=== PATIENT | female | born 1975 | race Caucasian/White ===

== ENCOUNTER 2016-12-10 08:47 | Inpatient (IN) | payer OTHER ==
[~2016-12-10] VITALS: Ht 172.7 cm; Wt 76.0 kg
[~2016-12-10 08:47] MED LIST: BUPR200T2 PO; HYDR-3498 PO; PEG4000S8 PO; TAMS-14 PO; TRAZ100T15 PO
[2016-12-10 09:06] VITALS: TEMP 98.6
[2016-12-10] MEDS ORDERED: KETOROLAC 30 MG INJ IM STA (09:17)
--- NOTE | 2016-12-10 09:29 | ERD ---
ER Documentation Chief Complaint Date/Time DATE: 12/10/16 TIME: 09:15 Chief Complaint left buttocks pain from falling last night. no drainage. no active bleeding HPI 41-year-old female with a history of chronic pain, anxiety, depression, ureteral /renal calculi and anemia ambulatory to the ED complaining of severe, sharp and crampy, nonradiating left hip pain after a slip and fall yesterday. She had a previous abscess there in childhood and feels this might we recurred. Pain is exacerbated by weightbearing or movement. No knee or ankle pain. No relieving factors. No other injuries. No syncope or loss of consciousness. Denies chest pain or palpitations. No shortness of breath or cough. Denies abdominal pain, nausea or vomiting. No fevers or chills. ROS All systems reviewed and are negative except as per history of present illness. Medications Home Meds Reported Medications Trazodone Hcl* (Trazodone Hcl*) 100 Mg Tablet, 100 MG PO HS Y for INSOMNIA, TAB 01/18/15 Bupropion Hcl* (Wellbutrin SR*) 200 Mg Tablet.sa, 400 MG PO DAILY, TAB.SA 11/28/14 Discontinued Scripts Hydrocodone Bit-Acetaminophen* ([place]*) 5-325 Mg Tab, 1 TAB PO Q6 Y for PAIN, # 20 TAB Prov:EDISON HERNANDEZ DO 07/13/15 Peg/Electrolytes* (Golytely Solution*) 4,000 Ml Soln.recon, 4000 ML PO ONCE, #1 BOTTLE Prov:EDISON HERNANDEZ DO 07/13/15 Tamsulosin Hcl* (Flomax*) 0.4 Mg Cap.er.24h, 0.4 MG PO BID, #30 CAP Prov:ROD HIGGINBOTHAM MD 05/29/15 Allergies Allergies: Coded Allergies: prochlorperazine edisylate (Verified Allergy, Severe, TONGUE SWELLS, ) prochlorperazine maleate (Verified Allergy, Severe, TONGUE SWELLS, 07/12/15 ) PMhx/Soc Reviewed in chart. As per HPI. History of Surgery: Yes (GASTRIC BY PASS, TUMMY TUCK ) Anesthesia Reaction: No Hx Neurological Disorder: No Hx Respiratory Disorders: Yes (ASTHMA) Hx Cardiac Disorders: No Hx Psychiatric Problems: Yes (ANXIETY, DEPRESSION ) Hx Miscellaneous Medical Probl: Yes (KIDNEY STONE, ANEMIA) Hx Alcohol Use: No Hx Substance Use: No Hx Tobacco Use: Yes Smoking Status: Current every day smoker FmHx Not relevant to presenting complaint. No stroke or cancer Physical Exam Vitals Vital Signs Date Time Temp Pulse Resp B/P Pulse Ox O2 Delivery O2 Flow Rate FiO2 12/10/16 09:06 98.6 79 20 165/99 98 Room Air 12/10/16 08:53 98.5 85 20 165/99 98 Physical Exam Const: Alert, anxious, crying Head: Atraumatic Eyes: Normal Conjunctiva ENT: Normal External Ears, Nose and Mouth. Neck: Full range of motion. Nontender.. Resp: Breath sounds are equal and clear to auscultation bilaterally Cardio: Regular rate and rhythm, no murmurs Abd: Soft, non tender, non distended. Normal bowel sounds Skin: No petechiae or rashes Back: No midline or flank tenderness Ext: Left lateral upper thigh/buttock: Tenderness but no erythema, induration , fluctuance or deformity. No subcutaneous crepitus. Neur: Awake and alert. No focal deficit observed. Psych: Anxious, denies depression or suicidal ideations. Result Diagram: 12/10/16 1110 12/10/16 1110 Results 24 hrs Laboratory Tests Test 12/10/16 11:10 Anion Gap 15 Basophils # 0.010^3/ul Basophils % 0.0% Blood Morphology Comment Blood Urea Nitrogen 14mg/dl Calcium Level 8.5mg/dl Carbon Dioxide Level 20mmol/L Chloride Level 107mmol/L Creatinine 0.50mg/dl Eosinophils # 0.010^3/ul Eosinophils % 0.0% Glucose Level 93mg/dl Hematocrit 30.4% Hemoglobin 9.7g/dl Lymphocytes # 0.710^3/ul Lymphocytes % 4.0% Mean Corpuscular Hemoglobin 23.3pg Mean Corpuscular Hemoglobin Concent 32.1g/dl Mean Corpuscular Volume 72.7fl Mean Platelet Volume 8.9fl Monocytes # 0.910^3/ul Monocytes % 5.9% Neutrophils # 14.510^3/ul Neutrophils % 90.1% Nucleated Red Blood Cells # 0.010^3/ul Nucleated Red Blood Cells % 0.0/100WBC Platelet Count 89054^3/UL Potassium Level 3.6mmol/L Red Blood Count 4.1810^6/ul Red Cell Distribution Width 18.2% Sodium Level 138mmol/L White Blood Count 16.110^3/ul Current Medications Medications (Trade) Dose Ordered Sig/Benita Route PRN Reason Start Time Stop Time Status Last Admin Dose Admin Ketorolac Tromethamine (Toradol) 30 mg ONCE STAT IM 12/10/16 09:17 12/10/16 09:18 12/10/16 09:31 Acetaminophen/ Hydrocodone Bitart ([place] ()) 1 tab ONCE ONCE PO 12/10/16 09:30 12/10/16 09:31 12/10/16 09:30 Lorazepam 2 mg 2 mg ONCE ONCE IM 12/10/16 10:30 12/10/16 10:31 12/10/16 10:14 Sodium Chloride (NS) 1,000 ml @ 1,000 mls/hr Q1H STAT IV 12/10/16 10:42 12/10/16 11:41 12/10/16 11:09 Hydromorphone HCl 1 mg 1 mg ONCE STAT IV 12/10/16 10:43 12/10/16 10:44 12/10/16 11:10 Piperacillin Sod/ Tazobactam Sod 100 ml @ 200 mls/hr ONCE STAT IVPB 12/10/16 10:57 12/10/16 11:26 12/10/16 11:13 Vancomycin HCl (Vancocin) 250 ml @ 125 mls/hr ONCE STAT IVPB 12/10/16 10:57 12/10/16 12:56 12/10/16 12:07 Ondansetron HCl (Zofran Inj) 4 mg BRIDGE ORDER PRN IV NAUSEA AND/OR VOMITING 12/10/16 13:00 12/11/16 12:59 Acetaminophen 650 mg 650 mg ER BRIDGE PRN PO MILD PAIN/FEVER 12/10/16 13:00 12/11/16 12:59 Piperacillin Sod/ Tazobactam Sod 100 ml @ 25 mls/hr TID@02,10,18 IVPB 12/10/16 18:00 UNV Levofloxacin/ Dextrose (Levaquin 500mg/ D5W 100 ml (Pmx)) 100 ml @ 100 mls/hr Q24H IVPB 12/10/16 13:00 UNV Bupropion HCl (Wellbutrin Sr) 400 mg DAILY PO 12/11/16 09:00 UNV Trazodone HCl (Desyrel) 50 mg HS PRN PO INSOMNIA 12/10/16 13:00 UNV Ketorolac Tromethamine 15 mg 15 mg Q8H PRN IV PAIN 12/10/16 13:00 12/14/16 12:00 UNV Potassium Chloride/Sodium Chloride (1/2 NS + KCl 20 Meq) 1,000 ml @ 80 mls/hr [id number] IV 12/10/16 12:48 IV Flush (NS 3 ml) 3 ml PER PROTOCOL IV 12/10/16 13:00 UNV Ondansetron HCl (Zofran Inj) 4 mg Q6H PRN IV NAUSEA AND/OR VOMITING 12/10/16 13:00 UNV Acetaminophen (Tylenol Tab) 650 mg Q6H PRN PO PAIN LEVEL 1-3 OR FEVER 12/10/16 13:00 UNV Oxycodone/ Acetaminophen (Percocet (5/ 325)) 1 tab Q6H PRN PO MODERATE PAIN LEVEL 4-6 12/10/16 13:00 UNV Morphine Sulfate (morphine) 2 mg Q4H PRN IV SEVERE PAIN LEVEL 7-10 12/10/16 13:00 UNV Docusate Sodium (Colace) 100 mg Q12H PRN PO CONSTIPATION 12/10/16 13:00 UNV Bisacodyl (Dulcolax) 5 mg DAILY PRN PO CONSTIPATION 12/10/16 13:00 UNV Pantoprazole (Protonix Tab) 40 mg DAILY@06 PO 12/11/16 06:00 UNV Nicotine (Nicoderm 14 Mg/ 24hr) 1 patch DAILY TRANSDERM 12/11/16 09:00 UNV Lorazepam (Ativan) 0.5 mg Q8H PRN PO ANXIETY 12/10/16 13:00 UNV PROCEDURE: This CT Left Hip CLINICAL INDICATION: The left hip pain post fall TECHNIQUE: Transaxial images were obtained on a multi-slice CT scanner without intravenous contrast. Sagittal and coronal re-formations were subsequently made. One or more of the following dose reduction techniques were used: - Automated exposure control. - Adjustment of the mA and/or kV according to patient size. - Use of iterative reconstruction technique. Radiation: The CTDIvol is 82.37 mGy and the DLP is 581.06 mGycm. COMPARISON: CT scan of the abdomen and pelvis done 05/29/2015. The pelvis and hips were unremarkable on the previous CT. FINDINGS: Osseous structures: The osseous elements appear intact with no fracture or destructive process identified. Joint spaces: The left hip joint appears unremarkable and no joint effusion is evident. The left sacroiliac joint also appears unremarkable. Soft tissues: There is increased stranding within the deep subcutaneous fat at the left superior posterior thigh and buttock with some bubbles of subcutaneous and intramuscular air evident. The bladder appears unremarkable as is the visualized bowel and there is no free intraperitoneal fluid or adenopathy evident. IMPRESSION: 1. No fracture or osseous destructive process is evident. This is unchanged from the previous CT of the abdomen and pelvis done 05/29/2015. 2. The joint spaces are well maintained with no joint effusion. 3. Interval development of increased soft tissue density seen within the deep subcutaneous fat of the left superior posterior-lateral thigh and buttock region with a few bubbles of the subcutaneous and intramuscular air. If there has not been a penetrating injury, the possibility of infection should be considered. Physician Shayla Date Time Electronically viewed and signed by Physician Shayla on 12/10/2016 10:25 RH/ Procedures/MDM DOCUMENTS REVIEWED: ED nurse, prior ED, prior records MEDICAL DECISION MAKIN-year-old female with a history of chronic pain, anxiety, depression, ureteral/renal calculi and anemia ambulatory to the ED complaining of severe, sharp and crampy, nonradiating left hip pain after a slip and fall yesterday. CT reveals developing buttock/thigh abscess. Antibiotics given after cultures. No criteria for SIRS or sepsis. Patient required multiple doses of opiate analgesics and anxiolytics. Surgery was consulted. Patient be admitted to [facility] for IV antibiotics, further evaluation and management. Counseled patient regarding diagnosis, diagnostic results and plan for admission. CALLS/CONSULTS: Time 12:25, Dr. Piedad Nixon, will consult. CALLS/CONSULTS: Time 12:25, Dr. Martin, Recommends admission to [facility]. PATIENT CARE TRANSITIONED: Time: 12:30, Dr. Martin. Departure Diagnosis: Primary Impression: Left buttock abscess Additional Impression: Anxiety Condition: Serious BILL HERNANDEZ MD Dec 10, 2016 09:29
[2016-12-10] MEDS ORDERED: HYDROCODONE/APAP (10/325) TAB PO ONE (09:30)
--- NOTE | 2016-12-10 10:26 | RADRPT ---
PROCEDURE: This CT Left Hip CLINICAL INDICATION: The left hip pain post fall TECHNIQUE: Transaxial images were obtained on a multi-slice CT scanner without intravenous contras t. Sagittal and coronal re-formations were subsequently made. One or more of the following dose reduction techniques were used: - Automated exposure control. - Adjustment of the mA and/or kV according to patient size. - Use of iterative reconstruction technique. Radiation: The CTDIvol is 82.37 mGy and the DLP is 581.06 mGycm. COMPARISON: CT scan of the abdomen and pelvis done 05/29/2015. The pelvis and hips were unremarkable on the previous CT. FINDINGS: Osseous structures: The osseous elements appear intact with no fracture or destructive process ident ified. Joint spaces: The left hip joint appears unremarkable and no joint effusion is evident. The left sa croiliac joint also appears unremarkable. Soft tissues: There is increased stranding within the deep subcutaneous fat at the left superior pos terior thigh and buttock with some bubbles of subcutaneous and intramuscular air evident. The bladde r appears unremarkable as is the visualized bowel and there is no free intraperitoneal fluid or rupert opathy evident. IMPRESSION: 1. No fracture or osseous destructive process is evident. This is unchanged from the previous CT of the abdomen and pelvis done 05/29/2015. 2. The joint spaces are well maintained with no joint effusion. 3. Interval development of increased soft tissue density seen within the deep subcutaneous fat of t he left superior posterior-lateral thigh and buttock region with a few bubbles of the subcutaneous a nd intramuscular air. If there has not been a penetrating injury, the possibility of infection shou ld be considered. Physician Shayla Date Time Electronically viewed and signed by Physician Shayla on 12/10/2016 10:25 /
[2016-12-10] MEDS ORDERED: LORAZEPAM 2 MG INJ IM ONE (10:30)
[2016-12-10] MEDS ORDERED: SOD CHLORIDE 0.9% 1,000 ML IV STA (10:42)
[2016-12-10] MEDS ORDERED: HYDROmorphONE 1 MG/ML SYG IV STA ×2 (10:43→13:05)
[2016-12-10] MEDS ORDERED: VANCOMYCIN 1 GM (PMX) 250 ML IVPB STA (10:57)
[2016-12-10] MEDS ORDERED: PIPER-TAZO 3.375 GM IV (PMX) 100 ML IVPB STA (10:57)
[2016-12-10 11:39] LABS: HEMATOCRIT 30.4 % (37.0-47.0); HEMOGLOBIN 9.7 g/dl (12.0-16.0); LYMPHOCYTES # 0.7 10^3/ul (0.8-2.9); MEAN CORPUSCULAR HEMOGLOBIN 23.3 pg (29.0-33.0); MEAN CORPUSCULAR HGB CONC 32.1 g/dl (32.0-37.0); MEAN CORPUSCULAR VOLUME 72.7 fl (82.0-101.0); MEAN PLATELET VOLUME 8.9 fl (7.4-10.4); MONOCYTE # 0.9 10^3/ul (0.3-0.9); MONOCYTES % 5.9 % (0.0-11.0); NEUTROPHIL # 14.5 10^3/ul (1.6-7.5); NEUTROPHILS % 90.1 % (39.0-77.0); PLATELET COUNT 247 10^3/UL (140-440); RED BLOOD COUNT 4.18 10^6/ul (4.20-5.40); RED CELL DISTRIBUTION WIDTH 18.2 % (11.5-14.5); UNCORRECTED WBC 16.1 10^3/ul (4.8-10.8); WHITE BLOOD COUNT 16.1 10^3/ul (4.8-10.8)
[2016-12-10 11:43] LABS: POTASSIUM 3.6 mmol/L (3.5-5.1)
[2016-12-10 11:45] LABS: CREATININE 0.5 mg/dl (0.44-1.00)
[2016-12-10 11:47] LABS: CONDITION 1; LH ANALYZER COMMENTS 1
[2016-12-10 11:51] LABS: CALCIUM 8.5 mg/dl (8.4-10.2)
[2016-12-10] MEDS ORDERED: DOCUSATE SODIUM 100 MG CAP PO PRN (13:00)
[2016-12-10] MEDS ORDERED: ONDANSETRON 4 MG INJ IV PRN ×2 (13:00)
[2016-12-10] MEDS ORDERED: BISACODYL (EC) 5 MG TAB PO PRN (13:00)
[2016-12-10] MEDS ORDERED: NACL 0.9% 3 ML SYG IV SCH (13:00)
[2016-12-10] MEDS ORDERED: LORAZEPAM 0.5 MG TAB PO PRN (13:00)
[2016-12-10] MEDS ORDERED: ACETAMINOPHEN 325 MG TAB PO PRN ×2 (13:00)
[2016-12-10 13:35] VITALS: BP 132/89; RESP 18
[2016-12-10] MEDS: morphine 2 MG INJ IV PRN ×2 (14:31→23:45)
[2016-12-10] MEDS: KETOROLAC 15 MG INJ IV PRN (15:54)
[2016-12-10] MEDS: 1/2 NS + KCL 20 MEQ 1,000 ML IV SCH (15:58)
[2016-12-10] MEDS: LEVOFLOXACIN 500MG/D5W (PMX) 100 ML IVPB SCH (15:58)
[2016-12-10 16:07] VITALS: Ht 172.7 cm; Wt 76.0 kg
[2016-12-10] MEDS ORDERED: morphine 2 MG INJ IV ONE (16:30)
[2016-12-10] MEDS: PIPER-TAZO 3.375 GM IV (PMX) 100 ML IVPB SCH (18:10)
[2016-12-10] MEDS ORDERED: LORAZEPAM 2 MG INJ IV ONE (18:30)
[2016-12-10] MEDS: OXYCODONE/ACETAMINOPHEN (5/325) TAB PO PRN (20:06)
[2016-12-10] MEDS: HYDROmorphONE 1 MG/ML SYG IV PRN (20:42)
[2016-12-10] MEDS: LORAZEPAM 2 MG INJ IV PRN (22:33)
[2016-12-11] MEDS: traZODone 50 MG TAB PO PRN ×2 (00:47→21:10)
[2016-12-11] MEDS: HYDROmorphONE 1 MG/ML SYG IV PRN ×3 (00:50→10:03)
[2016-12-11] MEDS: 1/2 NS + KCL 20 MEQ 1,000 ML IV SCH ×3 (01:18→18:41)
[2016-12-11] MEDS: PIPER-TAZO 3.375 GM IV (PMX) 100 ML IVPB SCH ×3 (01:25→18:41)
[2016-12-11] MEDS: OXYCODONE/ACETAMINOPHEN (5/325) TAB PO PRN ×4 (03:23→21:10)
[2016-12-11] MEDS: LORAZEPAM 2 MG INJ IV PRN ×5 (03:23→23:08)
[2016-12-11] MEDS: PANTOPRAZOLE (EC) 40 MG TAB PO SCH (05:27)
[2016-12-11 05:41] LABS: ALBUMIN 3.1 g/dl (3.3-4.9)
[2016-12-11 05:42] LABS: BASOPHILS % 0.1 % (0.0-2.0); EOSINOPHILS % 0.2 % (0.0-7.0); HEMATOCRIT 27.5 % (37.0-47.0); HEMOGLOBIN 8.9 g/dl (12.0-16.0); LYMPHOCYTES # 1.5 10^3/ul (0.8-2.9); LYMPHOCYTES % 10.4 % (15.0-51.0); MEAN CORPUSCULAR HEMOGLOBIN 23.5 pg (29.0-33.0); MEAN CORPUSCULAR HGB CONC 32.2 g/dl (32.0-37.0); MEAN CORPUSCULAR VOLUME 73.1 fl (82.0-101.0); MEAN PLATELET VOLUME 9.4 fl (7.4-10.4); MONOCYTE # 0.5 10^3/ul (0.3-0.9); MONOCYTES % 3.5 % (0.0-11.0); NEUTROPHIL # 12.3 10^3/ul (1.6-7.5); NEUTROPHILS % 85.8 % (39.0-77.0); PLATELET COUNT 216 10^3/UL (140-440); POTASSIUM 3.6 mmol/L (3.5-5.1); RED BLOOD COUNT 3.76 10^6/ul (4.20-5.40); RED CELL DISTRIBUTION WIDTH 18.1 % (11.5-14.5); UNCORRECTED WBC 14.4 10^3/ul (4.8-10.8); WHITE BLOOD COUNT 14.4 10^3/ul (4.8-10.8)
[2016-12-11 05:44] LABS: ALBUMIN/GLOBULIN RATIO 1.14; BILIRUBIN,INDIRECT 0.2 mg/dl (0-1.1); BILIRUBIN,TOTAL 0.2 mg/dl (0.2-1.3); CREATININE 0.49 mg/dl (0.44-1.00); TOTAL PROTEIN 5.8 g/dl (6.1-8.1)
[2016-12-11 05:45] LABS: CALCIUM 8.2 mg/dl (8.4-10.2); MAGNESIUM 1.7 mg/dl (1.7-2.5)
[2016-12-11 06:07] LABS: THYROID STIMULATING HORMONE 3.4 MIU/L (0.465-4.680)
[2016-12-11 06:13] LABS: CONDITION 1; LH ANALYZER COMMENTS 1
--- NOTE | 2016-12-11 06:24 | HP ---
DATE OF ADMISSION: 12/10/2016 CHIEF COMPLAINT: Left lower extremity pain. HISTORY OF PRESENT ILLNESS: This is a pleasant 41-year-old female with past medical history of inso mnia, depression, right lower extremity trauma at a young age, status post surgical intervention, wh ich she has not had any difficulty with ambulation status post the surgery, who had a fall about 2 d ays ago on her left hip and has been having complaint of having pain and the pain has been worsening significantly Therefore, she presented to [facility] emergency room where her WBC was foun d to be elevated at 16.1. CT of the lower extremity was obtained which showed no fracture, osseous destruction processes evident, although in the soft tissue there is increased stranding within the d eep subcutaneous fat at the left superior posterior thigh and buttocks with some bubbles of subcutan eous and intramuscular evident. The bladder appears unremarkable visualized bowel. There is no free intraperitoneal fluid or adenopathy otherwise evident. The hip joint appears unremarkable, no joint effusion is evident. The left sacroiliac joint also appears unremarkable. The patient was treated with Zofran, Tylenol, Zosyn, vancomycin, Dilaudid, normal saline, Ativan, [place] and Toradol in the course of the emergency room, and at this time, the patient continues to complain of having severe pain, 10/10, in her left hip area. PAST MEDICAL AND SURGICAL HISTORY: As above per HPI. MEDICATIONS 1. Wellbutrin. 2. Trazodone. ALLERGIES: PROCHLORPERAZINE. SOCIAL HISTORY: She smokes about half a pack to pack of cigarettes per day. No alcohol, no illicit drugs. FAMILY HISTORY: Noncontributory. REVIEW OF SYSTEMS: She denies any fever, chills, weight gain, weight loss, anorexia. No chest pain , palpitations, edema, orthopnea. No change in visual acuity, diplopia, photophobia. No nausea, vo miting, diarrhea, no abdominal pain, no neck pain. No restricted range of motion in upper extremiti es. Restricted range of motion in left lower extremity secondary to pain in her hip. No restricted range of motion in right upper and right lower extremity. She denies having dysuria, hematuria, ur gency, incontinence. Other 12 review of systems has been found to be negative. PHYSICAL EXAMINATION: VITAL SIGNS: Temperature 98.6, pulse 79, respiration 20, blood pressure 165/99, oxygen 98% in room air. GENERAL APPEARANCE: The patient is lying in bed comfortably with moderate discomfort and she looks anxious. EYES AND ENT: Conjunctivae and lids are normal. Pupils are normal. Extraocular normal. Hearing g rossly normal. Lips are normal. Oral mucosa mildly dry. NECK: Supple. Trachea is midline. No lymphadenopathy. RESPIRATORY: Effort is normal. Clear to auscultate bilaterally. CARDIOVASCULAR: Normal S1, S2 rhythm, rate. No murmur, no bruits, no edema. Peripheral puls es, radial pulses palpable. Cap refill is normal. CHEST: Normal expansion of thorax during inspiration. GASTROINTESTINAL: Abdomen is soft, nontender, not distended. Bowel sounds present. No guarding, n o rebound. GENITOURINARY: Deferred. MUSCULOSKELETAL: Upper extremities within normal limits. Right lower extremity: There is a well-h ealed scar in the buttocks area, nontender. The left hip at the lateral aspect there is tenderness to touch and no sign of erythema. NEUROLOGIC: Cranial nerves II through XII are grossly intact. PSYCHIATRIC: Normal judgment and insight. Alert and oriented x3. Mood and affect is normal. LABORATORY WORK AND IMAGING: WBC 16.1, hemoglobin 9.7, hematocrit 34.4, MCV 72.7, platelets 247. S odium 138, potassium 3.6, chloride 107, bicarbonate 20, BUN 14, creatinine 0.50, glucose 93, calcium 8.5. ASSESSMENT AND PLAN: 1. Left lower extremity pain with evidence of deep subcutaneous fat at the superior posterior thigh and buttocks with some bubbles and subcutaneous intramuscular air. General surgery has been consul guero. Patient has been started on Zosyn and vancomycin. At this time we will place the patient on Z osyn and Levaquin. Follow general surgery recommendation. 2. Leukocytosis, likely secondary to #1, as above continue broad-spectrum IV antibiotics. 3. Microcytic anemia. Follow up iron panel and treat accordingly. 4. History of nicotine dependency. Place the patient on nicotine patch. Education was provided. The patient has been instructed to quit smoking. 5. History of insomnia. Continue trazodone. 6. History of major depression. Continue Wellbutrin. 7. For deep venous thrombosis prophylaxis, on sequential compression devices. 8. For gastrointestinal prophylaxis, on proton pump inhibitor. 9. We will continue to monitor patient closely. Further recommendations, management and treatment as per clinical course. Total amount of time I spent for evaluation of patient and admission workup 40 minutes. Dictated By: SIVA JUSTICE MD PN/NTS Conf#: [id number] DID#: [id number]
[2016-12-11] MEDS: morphine 2 MG INJ IV PRN ×3 (06:47→23:57)
[2016-12-11 07:43] VITALS: BP 141/72; RESP 19
[2016-12-11] MEDS: BUPROPION (SR) 100 MG TAB PO SCH ×2 (08:20→20:26)
[2016-12-11] MEDS: KETOROLAC 15 MG INJ IV PRN ×2 (08:20→20:21)
[2016-12-11] MEDS: NICOTINE (14 MG/24 HR) PATCH TRANSDERM SCH (08:24)
[2016-12-11 08:49] LABS: TOTAL IRON BINDING CAPACITY 283 ug/dl (241-421)
[2016-12-11 09:01] LABS: IRON < 10 ug/dl (35-150)
--- NOTE | 2016-12-11 10:37 | CONS ---
DATE OF ADMISSION: 12/10/2016 DATE OF CONSULTATION: 12/10/2016 TYPE OF CONSULTATION: Surgical. REFERRING PHYSICIAN: Dr. Benito Waterman. CHIEF COMPLAINT: 1. Left buttocks/leg pain and swelling. 2. Left buttock/leg abscess. 3. Leukocytosis. HISTORY OF PRESENT ILLNESS: Ms. Poornima Rogers is a 41-year-old female with multiple comorbidities who had a fall about 2 days ago on her left hip, and since then, has been complaining of pain that is w orsening. Upon her presentation, she was found to have stable vitals but leukocytosis at 16,000. C T scan of the area identified no fractures, however, there were fluid and air bubbles and stranding within the deep subcutaneous fat of the left posterosuperior thigh and buttocks. She was admitted a nd placed on IV antibiotics, and surgical consult was obtained for further evaluation and treatment. She denies any nausea or vomiting, no chest pain or shortness of breath. No visual or neurologic changes. No abdominal pain. No dysuria or vaginal discharge. No blood per mouth or rectum. No co ugh. No seizure. No rashes. No ____. PAST MEDICAL HISTORY: 1. History of obesity status post surgery. 2. Recent history of fall. 3. Left lower extremity buttock abscess. 4. Insomnia. 5. Nicotine dependence. 6. Macrocytic anemia. 7. Leukocytosis. 8. Depression. 9. Migraines. 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 11. Asthma. 12. Kidney stones. 13. Pyelonephritis history. 14. Urinary tract infection. 15. Thyroid cancer history. 16. Reaction to blood transfusion with swelling of the face. PAST SURGICAL HISTORY: 1. Gastric bypass. 2. Tummy tuck. 3. Renal stents. MEDICATIONS: As per MAR. ALLERGIES: MULTIPLE. SOCIAL HISTORY: Smoker, about half a pack to a pack per day. No recreational drugs or alcohol. FAMILY HISTORY: Noncontributory. REVIEW OF SYSTEMS: As per HPI. A 12-point review of system otherwise negative. PHYSICAL EXAMINATION: VITAL SIGNS: Temperature 98.6, pulse 70s to 80s, blood pressure 126/76. GENERAL: No acute distress. HEENT: Pupils equal, reactive. No scleral icterus. Mucous membranes are moist. No lesions. NECK: Supple, no JVD. No crepitus. Trachea midline. PULMONARY: Normal respiratory effort. CARDIAC: S1, S2 present. ABDOMEN: Soft, nontender, no rebound, no guarding. EXTREMITIES: No edema. Left posterior thigh/lower buttock with some induration and tenderness. NEUROLOGICAL: Alert, oriented, moves all 4 extremities grossly. PSYCHIATRIC: Alert, oriented and normal affect. LABORATORY AND RADIOGRAPHIC: As per chart. ASSESSMENT AND PLAN: Ms. Poornima Rogers is a 41-year-old female with multiple comorbidities. 1. Left posterior thigh/lower buttock fluid collection. Continue antibiotics. We will consider in cision and drainage. 2. Microcytic anemia of unknown etiology. The patient will need eventual workup. 3. Nicotine dependence. The patient is highly encouraged to stop smoking, especially in the settin g of infection and possible abscess. 4. Leukocytosis secondary to #1, as above. 5. History of insomnia and depression. Continue medical and psychiatric management. Thank you very much for consulting me in this patient's care. Dictated By: SHIRLEY FULLER/JANET Conf#: [id number] DID#: [id number]
[2016-12-11] MEDS ORDERED: LIDOCAINE 1%/EPI (MDV) 20 ML INJ INJ STA (10:38)
--- NOTE | 2016-12-11 11:13 | PN ---
Date/Time of Note Date/Time of Note DATE: 12/11/16 TIME: 11:11 Assessment/Plan VTE Prophylaxis VTE Prophylaxis Intervention: SCD's Lines/Catheters Urinary Cath still in place: No Assessment/Plan Chief Complaint/Hosp Course ASSESSMENT AND PLAN: 1. Left lower extremity pain with evidence of deep subcutaneous fat at the superior posterior thigh and buttocks with some bubbles and subcutaneous intramuscular air. General surgery has been consulted. Continue Zosyn and Levaquin. Follow general surgery recommendation. 2. Leukocytosis, likely secondary to #1, as above continue broad-spectrum IV antibiotics. 3. microcytic anemia. Start patient on iron supplementation 4. History of nicotine dependency. Continue nicotine patch. Education was provided. The patient has been instructed to quit smoking. 5. History of insomnia. Continue trazodone. 6. History of major depression. Continue Wellbutrin. 7. For deep venous thrombosis prophylaxis, on sequential compression devices. 8. For gastrointestinal prophylaxis, on proton pump inhibitor. We will continue to monitor patient closely. Further recommendations, management and treatment as per clinical course. Problems: Subjective 24 Hr Interval Summary Free Text/Dictation Patient continues to complain of having left hip pain No nausea vomiting diarrhea Very anxious Exam/Review of Systems Vital Signs Vitals Vital Signs Date Time Temp Pulse Resp B/P Pulse Ox O2 Delivery O2 Flow Rate FiO2 12/11/16 07:43 98.5 115 19 141/72 100 12/10/16 09:06 Room Air Intake and Output 12/10/16 12/10/16 12/11/16 15:00 23:00 07:00 Intake Total 760 ml 1590 ml Output Total 650 ml 1100 ml Balance 110 ml 490 ml Exam General: The patient is well-developed, in moderate distress secondary to pain HEENT: Atraumatic, normocephalic. The pupils are equal and round . Neck: Supple with full range of motion. Chest: Normal expansion of the thorax during inspiration Lungs: Clear to auscultation bilaterally Heart: Normal S1-S2, Regular rhythm and rate. Abdomen: Soft , nontender, nondistended , bowel sounds are present. Extremities: Induration and erythema in the left hip area, no edema no cyanosis Neurologic: Normal mental status,The patient is awake, alert and oriented . Results Result Diagram: 12/11/16 0421 12/11/16420 Results 24 hrs Laboratory Tests Test 12/11/16 04:21 Alanine Aminotransferase (ALT/SGPT) 35 Albumin 3.1 L Albumin/Globulin Ratio 1.14 Alkaline Phosphatase 73 Anion Gap 14 Aspartate Amino Transf (AST/SGOT) 21 Basophils # 0.0 Basophils % 0.1 Blood Morphology Comment Blood Urea Nitrogen 12 Calcium Level 8.2 L Carbon Dioxide Level 21 Chloride Level 104 Cholesterol Level 147 Cholesterol/HDL Ratio 3.0 Creatinine 0.49 Direct Bilirubin 0.00 Eosinophils # 0.0 Eosinophils % 0.2 Globulin 2.70 Glucose Level 94 HDL Cholesterol 49 Hematocrit 27.5 L Hemoglobin 8.9 L Hemoglobin A1c 6.1 H Indirect Bilirubin 0.2 Iron Level < 10 L LDL Cholesterol, Calculated 82 Lymphocytes # 1.5 Lymphocytes % 10.4 L Magnesium Level 1.7 Mean Corpuscular Hemoglobin 23.5 L Mean Corpuscular Hemoglobin Concent 32.2 Mean Corpuscular Volume 73.1 L Mean Platelet Volume 9.4 Monocytes # 0.5 Monocytes % 3.5 Neutrophils # 12.3 H Neutrophils % 85.8 H Nucleated Red Blood Cells # 0.0 Nucleated Red Blood Cells % 0.0 Percent Iron Saturation Platelet Count 216 Potassium Level 3.6 Red Blood Count 3.76 L Red Cell Distribution Width 18.1 H Sodium Level 135 Thyroid Stimulating Hormone (TSH) 3.400 Total Bilirubin 0.2 Total Iron Binding Capacity 283 Total Protein 5.8 L Triglycerides Level 78 White Blood Count 14.4 H Medications Medications Current Medications Acetaminophen/ Hydrocodone Bitart ([place] ()) 1 tab ONCE ONCE PO Last administered on 12/10/16 09:30; Admin Dose 1 TAB; Start 12/10/16 at 09:30; Stop 12/10/16 at 09:31 Lorazepam 2 mg 2 mg ONCE ONCE IM Last administered on 12/10/16 10:14; Admin Dose 2 MG; Start 12/10/16 at 10:30; Stop 12/10/16 at 10:31 Piperacillin Sod/ Tazobactam Sod 100 ml @ 25 mls/hr TID@02,10,18 IVPB Last administered on 12/11/16 09:22; Admin Dose 25 MLS/HR; Start 12/10/16 at 18:00 Levofloxacin/ Dextrose (Levaquin 500mg/ D5W 100 ml (Pmx)) 100 ml @ 100 mls/hr Q24H IVPB Last administered on 12/10/16 15:58; Admin Dose 100 MLS/HR; Start at 15:00 Bupropion HCl (Wellbutrin Sr) 200 mg BID PO Last administered on 12/11/16 08: 20; Admin Dose 200 MG; Start 12/11/16 at 09:00 Trazodone HCl (Desyrel) 50 mg HS PRN PO INSOMNIA Last administered on 00:47; Admin Dose 50 MG; Start 12/10/16 at 13:00 Ketorolac Tromethamine 15 mg 15 mg Q8H PRN IV PAIN Last administered on 08:20; Admin Dose 15 MG; Start 12/10/16 at 13:00; Stop 12/14/16 at 12:00 Potassium Chloride/Sodium Chloride (10/31 NS + KCl 20 Meq) 1,000 ml @ 80 mls/hr [id number] IV Last administered on 12/10/16 15:58; Admin Dose 80 MLS/HR; Start at 12:48 Ondansetron HCl (Zofran Inj) 4 mg Q6H PRN IV NAUSEA AND/OR VOMITING; Start 09/15 at 13:00 Acetaminophen (Tylenol Tab) 650 mg Q6H PRN PO PAIN LEVEL 1-3 OR FEVER; Start at 13:00 Morphine Sulfate (morphine) 2 mg Q4H PRN IV SEVERE PAIN LEVEL 7-10 Last administered on 12/11/16 06:47; Admin Dose 2 MG; Start 12/10/16 at 13:00 Docusate Sodium (Colace) 100 mg Q12H PRN PO CONSTIPATION; Start 12/10/16 at 13: 00 Bisacodyl (Dulcolax) 5 mg DAILY PRN PO CONSTIPATION; Start 12/10/16 at 13:00 Pantoprazole (Protonix Tab) 40 mg DAILY@06 PO Last administered on 12/11/16 05 :27; Admin Dose 40 MG; Start 12/11/16 at 06:00 Nicotine (Nicoderm 14 Mg/ 24hr) 1 patch DAILY TRANSDERM ; Start 12/11/16 at 09: 00 Morphine Sulfate (morphine) 2 mg ONCE ONCE IV Last administered on 12/10/16 16:37; Admin Dose 2 MG; Start 12/10/16 at 16:30; Stop 12/10/16 at 16:31 Lorazepam (Ativan) 0.5 mg ONCE ONCE IV Last administered on 12/10/16 18:31; Admin Dose 0.5 MG; Start 12/10/16 at 18:30; Stop 12/10/16 at 18:31 Lorazepam (Ativan) 1 mg Q4H PRN IV ANXIETY Last administered on 12/11/16 08:20 ; Admin Dose 1 MG; Start 12/10/16 at 20:30 Oxycodone/ Acetaminophen (Percocet (5/ 325)) 1 tab Q4H PRN PO MODERATE PAIN LEVEL 4-6; Start 12/11/16 at 15:00 Morphine Sulfate (morphine) 3 mg Q3H PRN IV PAIN; Start 12/11/16 at 11:00 SIVA JUSTICE MD Dec 11, 2016 11:13
[2016-12-11] MEDS: morphine 4 MG/ML VIAL IV PRN ×4 (11:23→22:15)
[2016-12-11] MEDS: SOD FERRIC GLUC COMPLX 125 MG in SOD CHLORIDE 0.9% 100 ML IVPB SCH (13:53)
[2016-12-11] MEDS: LEVOFLOXACIN 500MG/D5W (PMX) 100 ML IVPB SCH (15:34)
--- NOTE | 2016-12-11 19:47 | PN ---
Date/Time of Note Date/Time of Note DATE: 12/11/16 TIME: 19:42 Assessment/Plan Lines/Catheters IV Catheter Type (from Nrs): Peripheral IV Russo in Place (from Nrs): No Assessment/Plan Chief Complaint/Hosp Course 1. Left posterior thigh/lower buttock fluid collection, possible abscess with cellulitis. -antibiotics -ivf -incision and drainage was planned for today at the bedside however patient is very anxious and refusing to be done at bedside. She wants to do it in surgery tomorrow despite knowing the risks until tomorrow 2. Microcytic anemia of unknown etiology. The patient will need eventual workup. 3. Nicotine dependence. The patient is highly encouraged to stop smoking, especially in the setting of infection and possible abscess. 4. Leukocytosis secondary to #1, as above. Improving 5. History of insomnia, depression, and severe anxiety. Continue medical and psychiatric management. Thank you Problems: Subjective 24 Hr Interval Summary Patient is very anxious and crying and hysterical. She reports pain on the left hip. She does not want me to do the I&D at the bedside and would prefer to go to surgery. However she had lunch. She rather wait till tomorrow for the I&D despite the high risk of infection worsening. She denies any nausea or vomiting , no chest pain or shortness of breath. No visual or neurologic changes. No abdominal pain. No dysuria or vaginal discharge. No blood per mouth or rectum. No cough. No seizure. No rashes. Exam/Review of Systems Vital Signs Vitals Vital Signs Date Time Temp Pulse Resp B/P Pulse Ox O2 Delivery O2 Flow Rate FiO2 12/11/16 07:43 98.5 115 19 141/72 100 12/10/16 09:06 Room Air Intake and Output 12/10/16 12/10/16 12/11/16 15:00 23:00 07:00 Intake Total 760 ml 1590 ml Output Total 650 ml 1100 ml Balance 110 ml 490 ml Exam Free Text/Dictation GENERAL: Very anxious and crying hysterically HEENT: Pupils equal, reactive. No scleral icterus. Mucous membranes are moist. No lesions. NECK: Supple, no JVD. No crepitus. Trachea midline. PULMONARY: Normal respiratory effort. CARDIAC: S1, S2 present. ABDOMEN: Soft, nontender, no rebound, no guarding. EXTREMITIES: No edema. Left posterior thigh/lower buttock with some induration , erythema, and tenderness. NEUROLOGICAL: Alert, oriented, moves all 4 extremities grossly. PSYCHIATRIC: Alert, oriented and very anxious Results Result Diagram: 12/11/1642012/11/16420 SHIRLEY MEIER MD Dec 11, 2016 19:47
[2016-12-11 20:06] VITALS: BP 139/86; RESP 20
[2016-12-11] MEDS: ASCORBIC ACID 500 MG TAB PO SCH (20:26)
[2016-12-11] MEDS ORDERED: ZOLPIDEM 5 MG TAB PO PRN (23:30)
[2016-12-12] VITALS (18 sets, daily range): BP systolic 111–145; BP diastolic 62–89; PULSE 100–116; RESP 15–34
[2016-12-12] MEDS: morphine 4 MG/ML VIAL IV PRN ×7 (01:57→21:56)
[2016-12-12] MEDS: PIPER-TAZO 3.375 GM IV (PMX) 100 ML IVPB SCH ×3 (02:03→18:07)
[2016-12-12] MEDS: LORAZEPAM 2 MG INJ IV PRN ×3 (03:32→21:07)
[2016-12-12] MEDS: morphine 2 MG INJ IV PRN (03:33)
[2016-12-12] MEDS: OXYCODONE/ACETAMINOPHEN (5/325) TAB PO PRN ×3 (04:49→23:03)
[2016-12-12 05:08] LABS: EOSINOPHILS # 0.1 10^3/ul (0.0-0.5); EOSINOPHILS % 0.8 % (0.0-7.0); HEMATOCRIT 27.8 % (37.0-47.0); HEMOGLOBIN 8.9 g/dl (12.0-16.0); LYMPHOCYTES # 0.9 10^3/ul (0.8-2.9); LYMPHOCYTES % 7.2 % (15.0-51.0); MEAN CORPUSCULAR HEMOGLOBIN 23.6 pg (29.0-33.0); MEAN CORPUSCULAR HGB CONC 32.1 g/dl (32.0-37.0); MEAN CORPUSCULAR VOLUME 73.3 fl (82.0-101.0); MONOCYTE # 0.6 10^3/ul (0.3-0.9); MONOCYTES % 4.8 % (0.0-11.0); NEUTROPHIL # 11.4 10^3/ul (1.6-7.5); NEUTROPHILS % 87.2 % (39.0-77.0); PLATELET COUNT 247 10^3/UL (140-440); RED BLOOD COUNT 3.79 10^6/ul (4.20-5.40); RED CELL DISTRIBUTION WIDTH 18.5 % (11.5-14.5)
[2016-12-12 05:12] LABS: POTASSIUM 4.3 mmol/L (3.5-5.1)
[2016-12-12 05:14] LABS: CREATININE 0.55 mg/dl (0.44-1.00)
[2016-12-12 05:15] LABS: CALCIUM 8.4 mg/dl (8.4-10.2)
[2016-12-12 05:52] LABS: CONDITION 1; LH ANALYZER COMMENTS 1
[2016-12-12] MEDS: PANTOPRAZOLE (EC) 40 MG TAB PO SCH (05:53)
[2016-12-12] MEDS ORDERED: ROCURONIUM 50 MG INJ ONE (07:00)
[2016-12-12] MEDS: BUPROPION (SR) 100 MG TAB PO SCH ×2 (08:51→21:07)
[2016-12-12] MEDS: ASCORBIC ACID 500 MG TAB PO SCH ×2 (08:51→21:07)
[2016-12-12] MEDS: FERROUS SULFATE (EC) 325 MG TAB PO SCH ×2 (08:51→21:07)
[2016-12-12] MEDS: NICOTINE (14 MG/24 HR) PATCH TRANSDERM SCH (09:00)
[2016-12-12] MEDS: KETOROLAC 15 MG INJ IV PRN (09:54)
--- NOTE | 2016-12-12 10:25 | PN ---
Date/Time of Note Date/Time of Note DATE: 12/12/16 TIME: 10:22 Assessment/Plan VTE Prophylaxis VTE Prophylaxis Intervention: SCD's Lines/Catheters IV Catheter Type (from Nrsg): Peripheral IV Urinary Cath still in place: No Assessment/Plan Chief Complaint/Hosp Course ASSESSMENT AND PLAN: 41 F with: 1. Left lower extremity pain - with evidence of deep subcutaneous fat at the superior posterior thigh and buttocks with some bubbles and subcutaneous intramuscular air. General surgery has been consulted. - Continue Zosyn and Levaquin. - plan for I+D today - Follow general surgery recommendation. - pain mngt consult 2. Leukocytosis - likely secondary to #1 - as above continue broad-spectrum IV antibiotics. 3. microcytic anemia. H/H stable. - iron supplementation 4. History of nicotine dependency. - Continue nicotine patch. Education was provided. - The patient has been instructed to quit smoking. 5. History of insomnia. Continue trazodone. 6. History of major depression. Continue Wellbutrin. 7. For deep venous thrombosis prophylaxis, on sequential compression devices. 8. For gastrointestinal prophylaxis, on proton pump inhibitor. We will continue to monitor patient closely. Further recommendations, management and treatment as per clinical course. Problems: Subjective 24 Hr Interval Summary Free Text/Dictation Per nursing, pt still asking for frequent pain meds, awaiting I+D for later today in surgical OR. Exam/Review of Systems Vital Signs Vitals Vital Signs Date Time Temp Pulse Resp B/P Pulse Ox O2 Delivery O2 Flow Rate FiO2 12/12/16 07:43 98.0 104 18 118/78 97 12/12/16 04:51 Room Air Intake and Output 12/11/16 12/11/16 12/12/16 15:00 23:00 07:00 Intake Total 1600 ml 300 ml Output Total 601 ml Balance 1600 ml -301 ml Exam General: The patient is well-developed, presently sleeping in bed HEENT: Atraumatic, normocephalic. The pupils are equal and round Neck: Supple with full range of motion. Chest: Normal expansion of the thorax during inspiration Lungs: Clear to auscultation bilaterally Heart: Normal S1-S2, Regular rhythm and rate. Abdomen: Soft , nontender, nondistended , bowel sounds are present. Extremities: Induration and erythema in the left hip area, no edema no cyanosis Neurologic: Normal mental status, alert and oriented . Results Result Diagram: 12/12/16 0427 12/12/16 0427 Results 24 hrs Laboratory Tests Test 12/12/16 04:27 Anion Gap 12 Basophils # 0.0 Basophils % 0.0 Blood Morphology Comment Blood Urea Nitrogen 9 Calcium Level 8.4 Carbon Dioxide Level 23 Chloride Level 107 Creatinine 0.55 Eosinophils # 0.1 Eosinophils % 0.8 Glucose Level 100 Hematocrit 27.8 L Hemoglobin 8.9 L Lymphocytes # 0.9 Lymphocytes % 7.2 L Mean Corpuscular Hemoglobin 23.6 L Mean Corpuscular Hemoglobin Concent 32.1 Mean Corpuscular Volume 73.3 L Mean Platelet Volume 9.0 Monocytes # 0.6 Monocytes % 4.8 Neutrophils # 11.4 H Neutrophils % 87.2 H Nucleated Red Blood Cells # 0.0 Nucleated Red Blood Cells % 0.0 Platelet Count 247 Potassium Level 4.3 Red Blood Count 3.79 L Red Cell Distribution Width 18.5 H Sodium Level 138 White Blood Count 13.0 H Medications Medications Current Medications Piperacillin Sod/ Tazobactam Sod 100 ml @ 25 mls/hr TID@02,10,18 IVPB Last administered on 12/12/16 09:54; Admin Dose 25 MLS/HR; Start 12/10/16 at 18:00 Levofloxacin/ Dextrose (Levaquin 500mg/ D5W 100 ml (Pmx)) 100 ml @ 100 mls/hr Q24H IVPB Last administered on 12/11/16 15:34; Admin Dose 100 MLS/HR; Start at 15:00 Bupropion HCl (Wellbutrin Sr) 200 mg BID PO Last administered on 12/12/16 08: 51; Admin Dose 200 MG; Start 12/11/16 at 09:00 Trazodone HCl (Desyrel) 50 mg HS PRN PO INSOMNIA Last administered on 21:10; Admin Dose 50 MG; Start 12/10/16 at 13:00 Ketorolac Tromethamine 15 mg 15 mg Q8H PRN IV PAIN Last administered on 09:54; Admin Dose 15 MG; Start 12/10/16 at 13:00; Stop 12/14/16 at 12:00 Potassium Chloride/Sodium Chloride (10/31 NS + KCl 20 Meq) 1,000 ml @ 80 mls/hr [id number] IV Last administered on 12/11/16 18:41; Admin Dose 80 MLS/HR; Start at 12:48 Ondansetron HCl (Zofran Inj) 4 mg Q6H PRN IV NAUSEA AND/OR VOMITING; Start 09/15 at 13:00 Acetaminophen (Tylenol Tab) 650 mg Q6H PRN PO PAIN LEVEL 1-3 OR FEVER; Start at 13:00 Morphine Sulfate (morphine) 2 mg Q4H PRN IV SEVERE PAIN LEVEL 7-10 Last administered on 12/12/16 03:33; Admin Dose 2 MG; Start 12/10/16 at 13:00 Docusate Sodium (Colace) 100 mg Q12H PRN PO CONSTIPATION; Start 12/10/16 at 13: 00 Bisacodyl (Dulcolax) 5 mg DAILY PRN PO CONSTIPATION; Start 12/10/16 at 13:00 Pantoprazole (Protonix Tab) 40 mg DAILY@06 PO Last administered on 12/12/16 05 :53; Admin Dose 40 MG; Start 12/11/16 at 06:00 Nicotine (Nicoderm 14 Mg/ 24hr) 1 patch DAILY TRANSDERM ; Start 12/11/16 at 09: 00 Lorazepam (Ativan) 1 mg Q4H PRN IV ANXIETY Last administered on 12/12/16 09:55 ; Admin Dose 1 MG; Start 12/10/16 at 20:30 Oxycodone/ Acetaminophen (Percocet (5/ 325)) 1 tab Q4H PRN PO MODERATE PAIN LEVEL 4-6 Last administered on 12/12/16 04:49; Admin Dose 1 TAB; Start at 13:30 Morphine Sulfate 3 mg 3 mg Q3H PRN IV PAIN Last administered on 12/12/16 08:51 ; Admin Dose 3 MG; Start 12/11/16 at 11:00 Ferric Sodium Gluconate Complex/ Sodium Chloride (Ferrlecit/NS) 110 ml @ 100 mls/hr Q24H IVPB Last administered on 12/11/16 13:53; Admin Dose 100 MLS/HR; Start 12/11/16 at 13:00; Stop 12/13/16 at 14:05 Ferrous Sulfate (Ferrous Sulfate (Ec)) 325 mg BID PO Last administered on 08:51; Admin Dose 325 MG; Start 12/12/16 at 09:00 Ascorbic Acid (Vitamin C) 500 mg BID PO Last administered on 12/12/16 08:51; Admin Dose 500 MG; Start 12/11/16 at 21:00 Zolpidem Tartrate (Ambien) 10 mg HS PRN PO INSOMNIA; Start 12/11/16 at 23:30 Miscellaneous Information (* Miscellaneous Pharmacy Order) HYPOGLYCEMIA PROTOCOL w... ONCE ONCE XX ; Start 12/12/16 at 10:30; Stop 12/12/16 at 10:31; Status UNV Miscellaneous Information (* Miscellaneous Pharmacy Order) Discontinue Glyburide , Glipizide,... ONCE ONCE XX ; Start 12/12/16 at 10:30; Stop 12/12/16 at 10:31 ; Status UNV Miscellaneous Information (* Miscellaneous Pharmacy Order) Discontinue all previ... ONCE ONCE XX ; Start 12/12/16 at 10:30; Stop 12/12/16 at 10:31; Status UNV Diagnostic Test (Pha) (Accucheck) 1 ea XX ; Start 12/13/16 at 02:00; Status UNV MANISH RODRIGUEZ Dec 12, 2016 10:25
[2016-12-12] MEDS ORDERED: GLUCAGON 1 MG INJ IM PRN (10:30)
[2016-12-12] MEDS ORDERED: GLUCOSE GEL 15 GRAM TUBE BUCCAL PRN (10:30)
[2016-12-12] MEDS ORDERED: GLUCOSE GEL 15 GRAM TUBE PO PRN ×2 (10:30)
[2016-12-12] MEDS ORDERED: DEXTROSE 50% 50 ML SYRINGE IV PRN ×2 (10:30)
[2016-12-12] MEDS: INSULIN ASPART [NOVOLOG] 3 ML PEN SC SCH ×3 (11:40→21:00)
[2016-12-12] MEDS: SOD FERRIC GLUC COMPLX 125 MG in SOD CHLORIDE 0.9% 100 ML IVPB SCH (12:18)
[2016-12-12] MEDS: LEVOFLOXACIN 500MG/D5W (PMX) 100 ML IVPB SCH (14:50)
[2016-12-12] MEDS ORDERED: MIDAZOLAM 1 MG/ML 2 ML INJ ONE ×3 (16:55→17:53)
[2016-12-12] MEDS ORDERED: CITRIC ACID/NA CITRATE 30 ML CUP ONE (16:55)
[2016-12-12] MEDS ORDERED: PROPOFOL 20 ML ONE (17:05)
[2016-12-12] MEDS ORDERED: SUCCINYLCHOLINE CHLORIDE 100 MG/5 ML SYG IV ONE (17:05)
--- NOTE | 2016-12-12 17:59 | PN ---
Date/Time of Note Date/Time of Note DATE: 12/12/16 TIME: 17:56 Assessment/Plan Lines/Catheters IV [facility] Type (from [facility] Peripheral IV Russo in Place (from [facility]): No Assessment/Plan Chief Complaint/Hosp Course 1. Left posterior thigh/lower buttock fluid collection, possible abscess with cellulitis. -antibiotics -ivf -incision and drainage today 2. Microcytic anemia of unknown etiology. The patient will need eventual workup. 3. Nicotine dependence. The patient is highly encouraged to stop smoking, especially in the setting of infection and possible abscess. 4. Leukocytosis secondary to #1, as above. Improving 5. History of insomnia, depression, and severe anxiety. Continue medical and psychiatric management. Thank you Problems: Subjective 24 Hr Interval Summary Patient is very anxious and crying. She denies any nausea or vomiting, no chest pain or shortness of breath. No visual or neurologic changes. No abdominal pain. No dysuria or vaginal discharge. No blood per mouth or rectum. No cough. No seizure. No rashes. Exam/Review of Systems Vital Signs Vitals Vital Signs Date Time Temp Pulse Resp B/P Pulse Ox O2 Delivery O2 Flow Rate FiO2 12/12/16 07:43 98.0 104 18 118/78 97 12/12/16 04:51 Room Air Intake and Output 12/11/16 12/11/16 12/12/16 15:00 23:00 07:00 Intake Total 1600 ml 300 ml Output Total 601 ml Balance 1600 ml -301 ml Exam Free Text/Dictation GENERAL: Very anxious and crying hysterically HEENT: Pupils equal, reactive. No scleral icterus. Mucous membranes are moist. No lesions. NECK: Supple, no JVD. No crepitus. Trachea midline. PULMONARY: Normal respiratory effort. CARDIAC: S1, S2 present. ABDOMEN: Soft, nontender, no rebound, no guarding. EXTREMITIES: No edema. Left posterior thigh/lower buttock with some induration , erythema, and tenderness. NEUROLOGICAL: Alert, oriented, moves all 4 extremities grossly. PSYCHIATRIC: Alert, oriented and very anxious Results Result Diagram: 12/12/1642612/12/16426 SHIRLEY MEIER MD Dec 12, 2016 17:59
[2016-12-12] MEDS ORDERED: ONDANSETRON 4 MG INJ IV PRN (18:00)
[2016-12-12] MEDS ORDERED: MEPERIDINE 25 MG INJ IV PRN (18:00)
[2016-12-12] MEDS ORDERED: MIDAZOLAM 1 MG/ML 2 ML INJ IV ONE (18:00)
[2016-12-12] MEDS ORDERED: HYDROmorphONE (0.2 MG/ML) 10ML SYG IV PRN ×2 (18:00)
[2016-12-12] MEDS: HYDROmorphONE (0.2 MG/ML) 10ML SYG IV PRN ×2 (18:00→18:07)
--- NOTE | 2016-12-12 18:07 | OPR ---
Date/Time of Note Date/Time of Note DATE: 12/12/16 TIME: 18:00 Operative Report Procedure Date: Dec 12, 2016 Preoperative Diagnosis Left hip cellulitis and abscess Postoperative Diagnosis Same Operation Performed Incision and drainage of left hip abscess (8x2cm) Surgeon: SHIRLEY MEIER MD Anesthesia: general (+ Local ) Anesthesiologist: KAY AQUINO DO Estimated Blood Loss: 0 - 10 ml's Specimens Culture Tubes/Drains kerlix Complications: None Complications None Pt Condition Post Procedure: stable Disposition: PACU Indications Per notes. R/B/A were fully explained as per usual and customary Procedure Description Patient was brought in on his own bed to the OR. Placed in lateral decubitus position. All pressure points were well-padded. Patient is already on antibiotics. Anesthesia was instituted. Timeout was performed. She was prepped and draped in usual sterile fashion. Using electrocautery abscess cavity was entered and drained. Hemostasis was obtained. Wound was irrigated and packed with Betadine soaked Kerlix. Dry dressing was applied. Patient was taken back to recovery room in stable condition. All counts were correct at the end of the operation 2. SHIRLEY MEIER MD Dec 12, 2016 18:07
[2016-12-12] MEDS: 1/2 NS + KCL 20 MEQ 1,000 ML IV SCH (19:00)
[2016-12-13] MEDS: morphine 4 MG/ML VIAL IV PRN ×3 (00:55→08:32)
[2016-12-13] MEDS: PIPER-TAZO 3.375 GM IV (PMX) 100 ML IVPB SCH ×3 (01:32→17:47)
[2016-12-13] MEDS: ACCUCHECK XX SCH (02:00)
[2016-12-13] MEDS: 1/2 NS + KCL 20 MEQ 1,000 ML IV SCH ×2 (03:18→14:57)
[2016-12-13 05:00] LABS: BASOPHIL # 0.1 10^3/ul (0.0-0.1); BASOPHILS % 0.7 % (0.0-2.0); EOSINOPHILS # 0.2 10^3/ul (0.0-0.5); HEMATOCRIT 28.1 % (37.0-47.0); LYMPHOCYTES # 1.6 10^3/ul (0.8-2.9); MEAN CORPUSCULAR HEMOGLOBIN 23.2 pg (29.0-33.0); MEAN CORPUSCULAR VOLUME 72.6 fl (82.0-101.0); MEAN PLATELET VOLUME 9.3 fl (7.4-10.4); MONOCYTE # 1.1 10^3/ul (0.3-0.9); MONOCYTES % 6.5 % (0.0-11.0); NEUTROPHIL # 13.3 10^3/ul (1.6-7.5); NEUTROPHILS % 81.8 % (39.0-77.0); PLATELET COUNT 227 10^3/UL (140-440); RED BLOOD COUNT 3.87 10^6/ul (4.20-5.40); RED CELL DISTRIBUTION WIDTH 18.4 % (11.5-14.5); UNCORRECTED WBC 16.3 10^3/ul (4.8-10.8); WHITE BLOOD COUNT 16.3 10^3/ul (4.8-10.8)
[2016-12-13 05:03] LABS: CONDITION 1; LH ANALYZER COMMENTS 1; SUSPECT 1
[2016-12-13] MEDS: OXYCODONE/ACETAMINOPHEN (5/325) TAB PO PRN ×2 (05:31→09:59)
[2016-12-13 05:34] LABS: POTASSIUM 3.9 mmol/L (3.5-5.1)
[2016-12-13 05:37] LABS: CREATININE 0.43 mg/dl (0.44-1.00)
[2016-12-13 05:38] LABS: CALCIUM 8.3 mg/dl (8.4-10.2)
[2016-12-13] MEDS: PANTOPRAZOLE (EC) 40 MG TAB PO SCH (06:04)
[2016-12-13] MEDS: LORAZEPAM 2 MG INJ IV PRN ×2 (06:05→09:59)
[2016-12-13 06:09] VITALS: BP 132/60; RESP 19
[2016-12-13 07:00] VITALS: BP 135/69; RESP 20
[2016-12-13] MEDS: INSULIN ASPART [NOVOLOG] 3 ML PEN SC SCH ×4 (07:50→21:00)
[2016-12-13] MEDS: BUPROPION (SR) 100 MG TAB PO SCH ×2 (08:32→20:47)
[2016-12-13] MEDS: ASCORBIC ACID 500 MG TAB PO SCH ×2 (08:33→20:46)
[2016-12-13] MEDS: NICOTINE (14 MG/24 HR) PATCH TRANSDERM SCH (08:33)
[2016-12-13] MEDS: FERROUS SULFATE (EC) 325 MG TAB PO SCH ×2 (08:33→21:06)
[2016-12-13] MEDS: SODIUM HYPOCHLORITE 0.125% 473 ML BTL IRR SCH (09:59)
--- NOTE | 2016-12-13 11:22 | PN ---
Date/Time of Note Date/Time of Note DATE: 12/13/16 TIME: 11:16 Assessment/Plan VTE Prophylaxis VTE Prophylaxis Intervention: SCD's Lines/Catheters IV Catheter Type (from Nrsg): Peripheral IV Urinary Cath still in place: No Assessment/Plan Chief Complaint/Hosp Course ASSESSMENT AND PLAN: 41 F with: 1. Left lower extremity pain - with evidence of deep subcutaneous fat at the superior posterior thigh and buttocks with some bubbles and subcutaneous intramuscular air. General surgery has performed I+D POD # 1. Still + fevers. - Continue Zosyn and Levaquin. - Follow general surgery recommendation. - pain mngt consult, and consider ID consult as well. 2. Leukocytosis - likely secondary to #1 - as above continue broad-spectrum IV antibiotics. 3. microcytic anemia. H/H stable. - iron supplementation 4. History of nicotine dependency. - Continue nicotine patch. Education was provided. - The patient has been instructed to quit smoking. 5. History of insomnia. Continue trazodone. 6. History of major depression. Continue Wellbutrin. 7. For deep venous thrombosis prophylaxis, on sequential compression devices. 8. For gastrointestinal prophylaxis, on proton pump inhibitor. We will continue to monitor patient closely. Further recommendations, management and treatment as per clinical course. Problems: Subjective 24 Hr Interval Summary Free Text/Dictation Pt had I+D yesterday. Had fever last night. Still asking for pain meds frequently. Exam/Review of Systems Vital Signs Vitals Vital Signs Date Time Temp Pulse Resp B/P Pulse Ox O2 Delivery O2 Flow Rate FiO2 12/13/16 07:00 98.7 107 20 135/69 99 12/13/16 06:09 Nasal Cannula 2.0 Intake and Output 12/12/16 12/12/16 12/13/16 15:00 23:00 07:00 Intake Total 100 ml 1300 ml 1220 ml Output Total 22 ml Balance 100 ml 1278 ml 1220 ml Exam General: The patient is well-developed HEENT: Atraumatic, normocephalic. The pupils are equal and round Neck: Supple with full range of motion. Chest: Normal expansion of the thorax during inspiration Lungs: Clear to auscultation bilaterally Heart: Normal S1-S2, Regular rhythm and rate. Abdomen: Soft , nontender, nondistended , bowel sounds are present. Extremities: Induration and erythema in the left hip area, no edema no cyanosis Neurologic: no focal deficits Results Result Diagram: 12/13/16 0420 12/13/16 0420 Results 24 hrs Laboratory Tests Test 12/12/16 11:19 12/12/16 20:59 12/13/16 04:20 12/13/16 08:31 Bedside Glucose 91 108 122 Anion Gap 14 Basophils # 0.1 Basophils % 0.7 Blood Morphology Comment Blood Urea Nitrogen 6 L Calcium Level 8.3 L Carbon Dioxide Level 21 Chloride Level 103 Creatinine 0.43 L Differential Comment AUTO w/SCAN Eosinophils # 0.2 Eosinophils % 1.0 Glucose Level 91 Hematocrit 28.1 L Hemoglobin 9.0 L Lymphocytes # 1.6 Lymphocytes % 10.0 L Mean Corpuscular Hemoglobin 23.2 L Mean Corpuscular Hemoglobin Concent 32.0 Mean Corpuscular Volume 72.6 L Mean Platelet Volume 9.3 Monocytes # 1.1 H Monocytes % 6.5 Neutrophils # 13.3 H Neutrophils % 81.8 H Nucleated Red Blood Cells # 0.0 Nucleated Red Blood Cells % 0.0 Platelet Count 227 Potassium Level 3.9 Red Blood Count 3.87 L Red Cell Distribution Width 18.4 H Sodium Level 134 L White Blood Count 16.3 #H Medications Medications Current Medications Piperacillin Sod/ Tazobactam Sod 100 ml @ 25 mls/hr TID@02,,18 IVPB Last administered on 12/13/16 09:59; Admin Dose 25 MLS/HR; Start 12/10/16 at 18:00 Levofloxacin/ Dextrose (Levaquin 500mg/ D5W 100 ml (Pmx)) 100 ml @ 100 mls/hr Q24H IVPB Last administered on 12/12/16 14:50; Admin Dose 100 MLS/HR; Start at 15:00 Bupropion HCl (Wellbutrin Sr) 200 mg BID PO Last administered on 12/13/16 08: 32; Admin Dose 200 MG; Start 12/11/16 at 09:00 Trazodone HCl (Desyrel) 50 mg HS PRN PO INSOMNIA Last administered on 21:10; Admin Dose 50 MG; Start 12/10/16 at 13:00 Ketorolac Tromethamine 15 mg 15 mg Q8H PRN IV PAIN Last administered on 09:54; Admin Dose 15 MG; Start 12/10/16 at 13:00; Stop 12/14/16 at 12:00 Potassium Chloride/Sodium Chloride (1/2 NS + KCl 20 Meq) 1,000 ml @ 80 mls/hr [id number] IV Last administered on 12/12/16 19:00; Admin Dose 80 MLS/HR; Start at 12:48 Ondansetron HCl (Zofran Inj) 4 mg Q6H PRN IV NAUSEA AND/OR VOMITING; Start 09/15 at 13:00 Acetaminophen (Tylenol Tab) 650 mg Q6H PRN PO PAIN LEVEL 1-3 OR FEVER; Start at 13:00 Morphine Sulfate (morphine) 2 mg Q4H PRN IV SEVERE PAIN LEVEL 7-10 Last administered on 12/12/16 03:33; Admin Dose 2 MG; Start 12/10/16 at 13:00 Docusate Sodium (Colace) 100 mg Q12H PRN PO CONSTIPATION; Start 12/10/16 at 13: 00 Bisacodyl (Dulcolax) 5 mg DAILY PRN PO CONSTIPATION; Start 12/10/16 at 13:00 Pantoprazole (Protonix Tab) 40 mg DAILY@06 PO Last administered on 12/13/16 06 :04; Admin Dose 40 MG; Start 12/11/16 at 06:00 Nicotine (Nicoderm 14 Mg/ 24hr) 1 patch DAILY TRANSDERM ; Start 12/11/16 at 09: 00 Lorazepam (Ativan) 1 mg Q4H PRN IV ANXIETY Last administered on 12/13/16 09:59 ; Admin Dose 1 MG; Start 12/10/16 at 20:30 Oxycodone/ Acetaminophen (Percocet (5/ 325)) 1 tab Q4H PRN PO MODERATE PAIN LEVEL 4-6 Last administered on 12/13/16 09:59; Admin Dose 1 TAB; Start at 13:30 Morphine Sulfate 3 mg 3 mg Q3H PRN IV PAIN Last administered on 12/13/16 08:32 ; Admin Dose 3 MG; Start 12/11/16 at 11:00 Ferric Sodium Gluconate Complex/ Sodium Chloride (Ferrlecit/NS) 110 ml @ 100 mls/hr Q24H IVPB Last administered on 12/12/16 12:18; Admin Dose 100 MLS/HR; Start 12/11/16 at 13:00; Stop 12/13/16 at 14:05 Ferrous Sulfate (Ferrous Sulfate (Ec)) 325 mg BID PO Last administered on 08:33; Admin Dose 325 MG; Start 12/12/16 at 09:00 Ascorbic Acid (Vitamin C) 500 mg BID PO Last administered on 12/13/16 08:33; Admin Dose 500 MG; Start 12/11/16 at 21:00 Zolpidem Tartrate (Ambien) 10 mg HS PRN PO INSOMNIA; Start 12/11/16 at 23:30 Diagnostic Test (Pha) (Accucheck) 1 ea 02 XX ; Start 12/13/16 at 02:00 Miscellaneous Information 1 ea NOTE XX ; Start 12/12/16 at 10:30 Glucose (Glutose) 15 gm Q15M PRN PO DECREASED GLUCOSE; Start 12/12/16 at 10:30 Glucose (Glutose) 22.5 gm Q15M PRN PO DECREASED GLUCOSE; Start 12/12/16 at 10: 30 Dextrose (D50w Syringe) 25 ml Q15M PRN IV DECREASED GLUCOSE; Start 12/12/16 at 10:30 Dextrose (D50w Syringe) 50 ml Q15M PRN IV DECREASED GLUCOSE; Start 12/12/16 at 10:30 Glucagon (Glucagen) 1 mg Q15M PRN IM DECREASED GLUCOSE; Start 12/12/16 at 10:30 Glucose (Glutose) 15 gm Q15M PRN BUCCAL DECREASED GLUCOSE; Start 12/12/16 at 10 :30 Sodium Hypochlorite (Dakin'S (1/4 Strength)) 1 applic DAILY IRR Last administered on 12/13/16 09:59; Admin Dose 1 APPLIC; Start 12/13/16 at 09:00 MANISH RODRIGUEZ Dec 13, 2016 11:22
[2016-12-13] MEDS ORDERED: BISACODYL (EC) 5 MG TAB PO PRN (11:30)
[2016-12-13] MEDS: HYDROmorphONE 1 MG/ML SYG IV PRN ×5 (12:00→23:43)
[2016-12-13] MEDS: LORAZEPAM 1 MG TAB PO SCH ×3 (12:00→23:42)
[2016-12-13] MEDS: GABAPENTIN 300 MG CAP PO SCH ×2 (13:04→20:46)
[2016-12-13] MEDS: SOD FERRIC GLUC COMPLX 125 MG in SOD CHLORIDE 0.9% 100 ML IVPB SCH (13:05)
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
[2016-12-13] MEDS ORDERED: DIPHENHYDRAMINE 25 MG CAP PO ONE (15:30)
[2016-12-13 19:45] VITALS: BP 141/66; RESP 18
--- NOTE | 2016-12-13 20:31 | PN ---
Date/Time of Note Date/Time of Note DATE: 12/13/16 TIME: 20:28 Assessment/Plan Lines/Catheters IV Catheter Type (from [facility]): Peripheral IV Russo in Place (from [facility]): No Assessment/Plan Chief Complaint/Hosp Course 1. Left posterior thigh/lower buttock abscess with cellulitis s/p I&D -antibiotics -ivf -wound care -off loading -nutritional optimization -vit c 2. Microcytic anemia of unknown etiology. The patient will need eventual workup. 3. Nicotine dependence. The patient is highly encouraged to stop smoking, especially in the setting of infection and possible abscess. 4. Leukocytosis secondary to #1, as above. 5. History of insomnia, depression, and severe anxiety. Continue medical and psychiatric management. Thank you Problems: Subjective 24 Hr Interval Summary s/p I&D 12/12. Worsening leukocytosis. Patient is very anxious and crying. Reports pain. Tachycardia and fevers. She denies any nausea or vomiting, no chest pain or shortness of breath. No visual or neurologic changes. No abdominal pain. No dysuria or vaginal discharge. No blood per mouth or rectum. No cough. No seizure. No rashes. Exam/Review of Systems Vital Signs Vitals Vital Signs Date Time Temp Pulse Resp B/P Pulse Ox O2 Delivery O2 Flow Rate FiO2 12/13/16 19:45 99.2 114 18 141/66 98 12/13/16 06:09 Nasal Cannula 2.0 Intake and Output 12/12/16 12/12/16 12/13/16 15:00 23:00 07:00 Intake Total 100 ml 1300 ml 1220 ml Output Total 22 ml Balance 100 ml 1278 ml 1220 ml Exam Free Text/Dictation GENERAL: Very anxious and crying hysterically HEENT: Pupils equal, reactive. No scleral icterus. Mucous membranes are moist. No lesions. NECK: Supple, no JVD. No crepitus. Trachea midline. PULMONARY: Normal respiratory effort. CARDIAC: S1, S2 present. ABDOMEN: Soft, nontender, no rebound, no guarding. EXTREMITIES: No edema. Left thigh/hip wound with packing. NEUROLOGICAL: Alert, oriented, moves all 4 extremities grossly. PSYCHIATRIC: Alert, oriented and very anxious Results Result Diagram: 12/13/1641912/13/16419 SHIRLEY MEIER MD Dec 13, 2016 20:31
[2016-12-13] MEDS: oxyCODONE (CR) 15 MG TAB [oxyCONTIN] PO SCH (20:47)
[2016-12-14] MEDS: ACCUCHECK XX SCH (01:58)
[2016-12-14] MEDS: 1/2 NS + KCL 20 MEQ 1,000 ML IV SCH (02:35)
[2016-12-14] MEDS: PIPER-TAZO 3.375 GM IV (PMX) 100 ML IVPB SCH ×2 (02:35→10:16)
[2016-12-14] MEDS: HYDROmorphONE 1 MG/ML SYG IV PRN ×4 (03:32→13:18)
[2016-12-14] MEDS: PANTOPRAZOLE (EC) 40 MG TAB PO SCH (05:30)
[2016-12-14] MEDS: LORAZEPAM 1 MG TAB PO SCH ×2 (05:30→12:32)
[2016-12-14 05:48] LABS: BASOPHILS % 0.1 % (0.0-2.0); EOSINOPHILS # 0.2 10^3/ul (0.0-0.5); EOSINOPHILS % 1.2 % (0.0-7.0); HEMATOCRIT 28.6 % (37.0-47.0); HEMOGLOBIN 9.2 g/dl (12.0-16.0); LYMPHOCYTES # 1.2 10^3/ul (0.8-2.9); LYMPHOCYTES % 9.5 % (15.0-51.0); MEAN CORPUSCULAR HEMOGLOBIN 23.5 pg (29.0-33.0); MEAN CORPUSCULAR HGB CONC 32.1 g/dl (32.0-37.0); MEAN CORPUSCULAR VOLUME 73.2 fl (82.0-101.0); MEAN PLATELET VOLUME 8.4 fl (7.4-10.4); MONOCYTE # 1.3 10^3/ul (0.3-0.9); MONOCYTES % 10.1 % (0.0-11.0); NEUTROPHILS % 79.1 % (39.0-77.0); PLATELET COUNT 307 10^3/UL (140-440); RED BLOOD COUNT 3.91 10^6/ul (4.20-5.40); RED CELL DISTRIBUTION WIDTH 19.4 % (11.5-14.5); UNCORRECTED WBC 12.6 10^3/ul (4.8-10.8); WHITE BLOOD COUNT 12.6 10^3/ul (4.8-10.8)
[2016-12-14 05:49] LABS: CONDITION 1; LH ANALYZER COMMENTS 1
[2016-12-14 05:59] LABS: POTASSIUM 4.2 mmol/L (3.5-5.1)
[2016-12-14 06:02] LABS: CREATININE 0.59 mg/dl (0.44-1.00)
[2016-12-14 06:03] LABS: CALCIUM 8.5 mg/dl (8.4-10.2)
[2016-12-14 07:47] VITALS: BP 135/70; RESP 19
[2016-12-14] MEDS: INSULIN ASPART [NOVOLOG] 3 ML PEN SC SCH ×2 (07:50→11:40)
[2016-12-14] MEDS: FERROUS SULFATE (EC) 325 MG TAB PO SCH (08:58)
[2016-12-14] MEDS: oxyCODONE (CR) 15 MG TAB [oxyCONTIN] PO SCH (08:58)
[2016-12-14] MEDS: ASCORBIC ACID 500 MG TAB PO SCH (08:58)
[2016-12-14] MEDS: BUPROPION (SR) 100 MG TAB PO SCH (08:58)
[2016-12-14] MEDS: GABAPENTIN 300 MG CAP PO SCH ×2 (08:58→12:32)
[2016-12-14] MEDS: NICOTINE (14 MG/24 HR) PATCH TRANSDERM SCH (08:59)
[2016-12-14] MEDS: SODIUM HYPOCHLORITE 0.125% 473 ML BTL IRR SCH (08:59)
[2016-12-14] MEDS ORDERED: POLYETHYLENE GLYCOL 17 GM PACKET PO SCH (09:00)
--- NOTE | 2016-12-14 11:12 | PDOCDIS ---
Discharge Instructions CONDITION Patient Condition: Stable HOME CARE INSTRUCTIONS: Special Diet: REGULAR ACTIVITY: Activity Restrictions: Slowly Increase Activity FOLLOW UP/APPOINTMENTS Appointments Please take your medications as prescribed, and see your doctor in the clinic in 1 week. MANISH RODRIGUEZ Dec 14, 2016 11:12
[2016-12-14] MEDS ORDERED: METR500T PO (11:13)
[2016-12-14] MEDS ORDERED: CIPR500T4 PO (11:13)
[2016-12-14] MEDS ORDERED: OXYC-536 PO (11:16)
[2016-12-14] MEDS ORDERED: HYDR2TAB15 PO (11:16)
[2016-12-14] MEDS ORDERED: LORA1TAB PO (11:16)
[2016-12-14] MEDS ORDERED: BACI28.421 TOP (11:17)
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
--- NOTE | 2016-12-14 13:02 | PN ---
DATE: 12/14/2016 INFECTIOUS DISEASE PROGRESS NOTE SUBJECTIVE: No acute changes. The patient is alert, feels better, looks comfortable, no fevers. LABORATORY DATA: WBC today 12.6, neutrophils 79.1. BUN 7, creatinine 0.59. MICROBIOLOGY: All cultures have been negative. Wound culture negative as well. ANTIMICROBIALS: The patient is on: 1. Vancomycin. 2. Zosyn. Status post Levaquin. PHYSICAL EXAMINATION: GENERAL: This is a well-nourished, well-developed, middle-aged white woman who is alert, in no distress. HEENT: Head atraumatic, normocephalic. Sclerae anicteric. Buccal mucosa pink. NECK: Supple, trachea midline. CHEST: Rise symmetrical. Breath sounds clear. HEART: S1, S2. ABDOMEN: Soft, bowel sounds present. EXTREMITIES: No cyanosis. ASSESSMENT: 1. Systemic inflammatory response syndrome secondary to #2. 2. Left hip cellulitis with abscess status post incision and drainage on December 12. PLAN: The patient remains stable. White blood cell count tracing down. She is not allergic to antibiotics. Anticipate to dc home on oral Bactrim when cleared by surgical team Dictated By: MINA SALAS NEON GLASS BLOWER for JAMES MCMAHAN/NTS Conf#: [id number] DID#: [id number] MTDD
[2016-12-14] MEDS ORDERED: TRIMETHOPRIM/SULFAMETHOX (DS) TAB PO SCH (21:00)
== END 2016-12-14 14:15 | disposition home or self-care (01) | DRG 581 ==
LOC: E/R 08:47 → MS1 13:36
PROVIDERS: ADMIT Student in an Organized Health Care Education/Training Program; ATTEND Student in an Organized Health Care Education/Training Program
PROC: 0J9P0ZZ Drainage of Left Lower Leg Subcutaneous Tissue and Fascia, Open Approach (ICD-10-PCS; principal; 2016-12-12 19:00)
DX: L02.416 Cutaneous abscess of left lower limb (principal); F32.9 Major depressive disorder, single episode, unspecified; F17.210 Nicotine dependence, cigarettes, uncomplicated; F41.9 Anxiety disorder, unspecified; D50.9 Iron deficiency anemia, unspecified; L03.116 Cellulitis of left lower limb; J45.909 Unspecified asthma, uncomplicated; G89.29 Other chronic pain; G47.00 Insomnia, unspecified; Z98.84 Bariatric surgery status; Z85.850 Personal history of malignant neoplasm of thyroid
CPT/HCPCS: 73700; 80048; 80053; 80061; 82728; 82962; 83036; 83540; 83735; 84443; 84703; 85025; 87040; 87070; 87075; 87102; 87116; 96372; 96374; 96375; J0330; J1170; J1815; J1885; J1956; J2060; J2250; J2270; J2543; J2916; J3010; J3370; J3480; J7030

== ENCOUNTER 2017-06-28 22:36 | Emergency (ER) | payer OTHER ==
[~2017-06-28] VITALS: Ht 172.7 cm; Wt 72.7 kg
[~2017-06-28 22:36] MED LIST changes: +BACI28.421 TOP; +CIPR500T4 PO; -HYDR-3498 PO; +HYDR2TAB36 PO; +LORA1TAB PO; +METR500T PO; +OXYC-536 PO; -PEG4000S8 PO; -TAMS-14 PO
[2017-06-28 22:41] VITALS: Ht 172.7 cm; Wt 72.7 kg
[2017-06-29] MEDS ORDERED: morphine 4 MG/ML VIAL IV STA (00:16)
[2017-06-29] MEDS ORDERED: KETOROLAC 30 MG INJ IV STA (00:16)
[2017-06-29] MEDS ORDERED: ONDANSETRON 4 MG INJ IV STA (00:16)
[2017-06-29] MEDS ORDERED: SOD CHLORIDE 0.9% 1,000 ML IV STA (00:16)
--- NOTE | 2017-06-29 00:39 | ERD ---
ER Documentation Chief Complaint Date/Time DATE: 06/29/17 TIME: 00:38 Chief Complaint L flank pain today, hx renal colic/cysts/shunt HPI 42-year-old female presents to emergency department for complaint of left flank pain that started today. Patient describes the pain as sharp pain, 9/10 scale, not better or worse with anything. Patient has a history of kidney stones, is actually seen neurology and renal specialist for this. Patient has appointment with urology specialist in 3 weeks. Patient's having sharp pain tonight, 8/10 scale, no better or worse with anything. Patient denies any fever or chills. Patient denies any hematuria. Patient denies any dysuria. Patient denies any nausea vomiting. ROS All systems reviewed and are negative except as per history of present illness. Medications Home Meds Active Scripts Bacitracin-Polymyxin* (Double Antibiotic Oint*) 28.4 Gm Oint...g., 1 APPLIC TOP BID for 7 Days, EA Prov:MANISH RODRIGUEZ S. 12/14/16 Lorazepam* (Lorazepam*) 1 Mg Tablet, 1 MG PO Q6 for 14 Days, TAB Prov:MANISH RODRIGUEZ S. 12/14/16 Oxycodone Hcl* (Oxycontin*) 15 Mg Tab.sr.12h, 15 MG PO BID for 14 Days Prov:MANISH RODRIGUEZ S. 12/14/16 Hydromorphone Hcl* (Dilaudid*) 2 Mg Tablet, 1 MG PO Q6H Y for PAIN LEVEL 7-10, # 10 TAB Prov:MANISH RODRIGUEZ S. 12/14/16 Metronidazole* (Flagyl*) 500 Mg Tablet, 500 MG PO TID for 7 Days, #21 TAB Prov:MANISH RODRIGUEZ S. 12/14/16 Ciprofloxacin Hcl* (Ciprofloxacin Hcl*) 500 Mg Tablet, 500 MG PO BID for 7 Days , #14 TAB Prov:MANISH RODRIGUEZ S. 12/14/16 Reported Medications Trazodone Hcl* (Trazodone Hcl*) 100 Mg Tablet, 100 MG PO HS Y for INSOMNIA, TAB 01/18/15 Bupropion Hcl* (Wellbutrin SR*) 200 Mg Tablet.sa, 400 MG PO DAILY, TAB.SA 11/28/14 Allergies Allergies: Coded Allergies: prochlorperazine edisylate (Verified Allergy, Severe, TONGUE SWELLS, ) prochlorperazine maleate (Verified Allergy, Severe, TONGUE SWELLS, 07/12/15 ) PMhx/Soc History of Surgery: Yes Anesthesia Reaction: No Hx Neurological Disorder: Yes (MIGRAINE, PINEAL CYST) Hx Respiratory Disorders: Yes (ASTHMA) Hx Cardiac Disorders: No Hx Psychiatric Problems: Yes (ANXIETY, DEPRESION) Hx Miscellaneous Medical Probl: No (kidney stent) Hx Alcohol Use: No Hx Substance Use: No Hx Tobacco Use: Yes (THIS MORNING 2-11-17. 4 CIGARETTES) Smoking Status: Current every day smoker FmHx Family History: No coronary disease, No diabetes, No other Physical Exam Vitals Vital Signs Date Time Temp Pulse Resp B/P Pulse Ox O2 Delivery O2 Flow Rate FiO2 06/28/17 22:41 98.7 99 20 133/98 97 Physical Exam GENERAL: The patient is well developed and appropriate for usual state of health, in no apparent distress. CHEST: Clear to auscultation bilaterally. There are no rales, wheezes or rhonchi. HEART: Regular rate and rhythm. No murmurs, clicks, rubs or gallops. No S3 or S4. ABDOMEN: Soft, nontender and nondistended. Good bowel sounds. No rebound or guarding. No gross peritonitis. No gross organomegaly or masses. No Cohen sign or McBurney point tenderness. BACK: No midline or flank tenderness. EXTREMITIES: Equal pulses bilaterally. There is no peripheral clubbing, cyanosis or edema. No focal swelling or erythema. Full range of motion. Grossly neurovascularly intact. NEURO: Alert and oriented. Cranial nerves 2-12 intact. Motor strength in all 4 extremities with 5/5 strength. Sensation grossly intact. Normal speech and gait. SKIN: There is no apparent rash or petechia. The skin is warm and dry. HEMATOLOGIC AND LYMPHATIC: There is no evidence of excessive bruising or lymphedema. No gross cervical, axillary, or inguinal lymphadenopathy. Result Diagram: 06/29/17 0055 06/29/17 0055 Results 24 hrs Laboratory Tests Test 06/29/17 00:29 06/29/17 00:55 Urine Color YELLOW Urine Clarity SLIGHTLY CLOUDY Urine pH 5.0 Urine Specific [place] 1.021 Urine Ketones NEGATIVEmg/dL Urine Nitrite NEGATIVEmg/dL Urine Bilirubin NEGATIVEmg/dL Urine Urobilinogen NEGATIVEmg/dL Urine Leukocyte Esterase TRACELeu/ul Urine Microscopic RBC > 182/HPF Urine Microscopic WBC 31/HPF Urine Squamous Epithelial Cells MODERATE/HPF Urine Bacteria FEW/HPF Urine Mucus FEW/HPF Urine Hemoglobin 3+mg/dL Urine Glucose NEGATIVEmg/dL Urine Total Protein NEGATIVEmg/dl White Blood Count 8.810^3/ul Red Blood Count 4.3410^6/ul Hemoglobin 10.9g/dl Hematocrit 34.2% Mean Corpuscular Volume 78.8fl Mean Corpuscular Hemoglobin 25.1pg Mean Corpuscular Hemoglobin Concent 31.9g/dl Red Cell Distribution Width 16.6% Platelet Count 41242^3/UL Mean Platelet Volume 10.4fl Neutrophils % 67.2% Lymphocytes % 22.3% Monocytes % 6.5% Eosinophils % 3.0% Basophils % 0.7% Nucleated Red Blood Cells % 0.0/100WBC Neutrophils # (Manual) 5.910^3/ul Lymphocytes # 2.010^3/ul Monocytes # 0.610^3/ul Eosinophils # 0.310^3/ul Basophils # 0.110^3/ul Nucleated Red Blood Cells # 0.010^3/ul Sodium Level 138mmol/L Potassium Level 4.3mmol/L Chloride Level 103mmol/L Carbon Dioxide Level 22mmol/L Anion Gap 17 Blood Urea Nitrogen 18mg/dl Creatinine 0.70mg/dl Glucose Level 94mg/dl Calcium Level 8.9mg/dl Total Bilirubin 0.0mg/dl Direct Bilirubin 0.00mg/dl Indirect Bilirubin 0.0mg/dl Aspartate Amino Transf (AST/SGOT) 24IU/L Alanine Aminotransferase (ALT/SGPT) 24IU/L Alkaline Phosphatase 88IU/L Total Protein 7.2g/dl Albumin 3.9g/dl Globulin 3.30g/dl Albumin/Globulin Ratio 1.18 Lipase 68U/L Current Medications Medications (Trade) Dose Ordered Sig/Benita Route PRN Reason Start Time Stop Time Status Last Admin Dose Admin Sodium Chloride (NS) 1,000 ml @ 1,000 mls/hr Q1H STAT IV 06/29/17 00:16 06/29/17 01:15 DC 06/29/17 00:51 Morphine Sulfate (morphine) 4 mg ONCE STAT IV 06/29/17 00:16 06/29/17 00:20 DC 06/29/17 00:51 Ondansetron HCl (Zofran Inj) 4 mg ONCE STAT IV 06/29/17 00:16 06/29/17 00:20 DC 06/29/17 00:51 Ketorolac Tromethamine (Toradol) 30 mg ONCE STAT IV 06/29/17 00:16 06/29/17 00:20 DC 06/29/17 00:51 Hydromorphone HCl 1 mg 1 mg ONCE ONCE IV 06/29/17 01:49 06/29/17 01:50 DC 06/29/17 02:08 Ceftriaxone Sodium (Rocephin) 50 ml @ 100 mls/hr ONCE ONCE IVPB 06/29/17 02:00 06/29/17 02:29 06/29/17 02:07 Patient was given medication for pain here in emergency department, after treatment, patient verbalized feeling much better. Patient's pain is improved. Patient was given Zofran here in the emergency department. After treatment, patient was able to tolerate po fluids here in the emergency department without any vomiting. There is no signs and symptoms of dehydration. Normal saline IV bolus was given here in emergency department for rehydration, patient tolerated IV fluids. IV rocephin given here in the ER, tolerated meds well PROCEDURE: CT Abdomen and Pelvis without contrast. CLINICAL INDICATION: Abdominal pain TECHNIQUE: CT scan of the abdomen and pelvis without contrast was performed on a multidetector high-resolution CT scanner. The patient was scanned without intravenous contrast. Coronal and sagittal reformatted images were obtained from the axial source images. Images were reviewed on a high-resolution PACS workstation. The total exam CTDI equals 9.34 mGy and the total exam DLP equals 553.38 mGy-cm. One or more the following dose reduction techniques were utilized: Automated exposure control, adjustment of the mA and / or kV according to patient's size, or use of iterative reconstruction technique. COMPARISON: 05/29/2015 FINDINGS: Linear atelectasis/fibrosis at lung bases. No pneumoperitoneum is seen. No abnormality is seen in the liver, gallbladder, spleen. Gastric bypass surgery changes again seen. No biliary dilatation is seen. No abnormality is seen in the pancreas, adrenals. Bilateral nonobstructing renal calcifications are again seen the largest 3 mm in the mid to lower right kidney. No hydronephrosis or ureteral stone is seen. Small amount calcification in abdominal aorta. No abdominal aortic aneurysm is seen. No definite abnormality of the uterus or adnexal regions is seen on CT. Phleboliths in pelvis. No abnormality of the bladder is seen. Likely fibrotic change subcutaneous fat posterior lateral to the left hip. Likely calcified injection granulomas in the subcutaneous fat bilateral gluteal regions with soft tissue stranding which could represent fibrotic changes in the subcutaneous fat bilateral gluteal regions. Stool in much of the colon. Very small anterior upper abdominal wall hernia containing fat only. There is an unremarkable appendix. No significantly dilated small bowel loops are seen. No enlarged lymph nodes are seen in the abdomen or pelvis. Small scattered likely bone islands. Bilateral L5 spondylolysis with minimal grade 1 L5 on S1 spondylolisthesis. IMPRESSION: Stool in much of the colon. Very small anterior upper abdominal wall hernia containing fat only. Bilateral nonobstructing renal calcifications again seen. Please see above. RPTAT: HJES .Alphonso Baez MD, MD Date Time Electronically viewed and signed by .Alphonso Baez MD, MD on 06/29/2017 01:50 .S/ CC: CRISTHIAN ADAMES [employer] Procedures/MDM Medical Decision Making: Patient's symptoms of flank pain nonspecific at this time, there is hematuria, increased RBC in the urine, blood in the urine, is consistent with a passed kidney stone, patient also has some leukocytes in the urine, possibly consistent with a urinary tract infection, possible early pyelonephritis. There is low suspicion for abdominal emergencies at this time. Patients abdominal exam is normal at this time. Patients radiology exam does not show any abdominal emergencies at this time. There is low suspicion for appendicitis, cholecystitis, abdominal aortic aneurysms or peritonitis at this time. There is low suspicion for sepsis. Patient appears well and is hemodynamically stable. Disposition: Home. Condition: Stable Prescription ciprofloxacin, Pyridium, [place] Instructions: Patient is advised to take medications as prescribed. Patient is advised to rest, increase fluid intake and do brat diet for next 1-2 days and progress as tolerated. Patient is advised that if symptoms are worse, severe abdominal pain, uncontrolled vomiting, high fever, severe flank pain, worst signs and symptoms, to return to the emergency department immediately. Otherwise, patient can follow up with primary care doctor in 5-7 days. See urology specialist Departure Diagnosis: Primary Impression: Flank pain Additional Impression: UTI (urinary tract infection) Urinary tract infection type: acute cystitis Hematuria presence: with hematuria Qualified Code: N30.01 - Acute cystitis with hematuria Condition: Stable Patient Instructions: Flank Pain, Uncertain Cause, Understanding Urinary Tract Infections (UTIs) Additional Instructions: Patient is advised to take medications as prescribed. Patient is advised to rest , increase fluid intake and do brat diet for next 1-2 days and progress as tolerated. Patient is advised that if symptoms are worse, severe abdominal pain , uncontrolled vomiting, high fever, severe flank pain, worst signs and symptoms , to return to the emergency department immediately. Otherwise, patient can follow up with primary care doctor in 5-7 days. See urology specialist CRISTHIAN ADAMES NP Jun 29, 2017 00:39
[2017-06-29 01:19] LABS: ADD UMIC YES; UR ASCORBIC ACID NEGATIVE (NEGATIVE); UR BACTERIA FEW /HPF (NONE SEEN); UR BILIRUBIN (Dip) NEGATIVE (NEGATIVE); UR BLOOD (Dip) 3+ mg/dL (NEGATIVE); UR CLARITY SLIGHTLY CLOUDY (CLEAR); UR COLOR YELLOW (YELLOW); UR GLUCOSE (Dip) NEGATIVE (NEGATIVE); UR KETONES (Dip) NEGATIVE (NEGATIVE); UR LEUKOCYTE ESTERASE (Dip) TRACE Leu/ul (NEGATIVE); UR MUCUS FEW /HPF (NONE SEEN); UR NITRITE (Dip) NEGATIVE (NEGATIVE); UR RBC > 182 /HPF (0-5); UR SPECIFIC GRAVITY (Dip) 1.021 (1.003-1.030); UR SQUAMOUS EPITHELIAL CELL MODERATE /HPF (FEW); UR TOTAL PROTEIN (Dip) NEGATIVE (NEGATIVE); UR UROBILINOGEN (Dip) NEGATIVE (NEGATIVE)
[2017-06-29 01:24] LABS: BASOPHIL # 0.1 10^3/ul (0.0-0.1); BASOPHILS % 0.7 % (0.0-2.0); EOSINOPHILS # 0.3 10^3/ul (0.0-0.5); HEMATOCRIT 34.2 % (37.0-47.0); HEMOGLOBIN 10.9 g/dl (12.0-16.0); LYMPHOCYTES % 22.3 % (15.0-51.0); MEAN CORPUSCULAR HEMOGLOBIN 25.1 pg (29.0-33.0); MEAN CORPUSCULAR HGB CONC 31.9 g/dl (32.0-37.0); MEAN CORPUSCULAR VOLUME 78.8 fl (82.0-101.0); MEAN PLATELET VOLUME 10.4 fl (7.4-10.4); MONOCYTE # 0.6 10^3/ul (0.3-0.9); MONOCYTES % 6.5 % (0.0-11.0); NEUTROPHILS % 67.2 % (39.0-77.0); PLATELET COUNT 284 10^3/UL (140-415); RED BLOOD COUNT 4.34 10^6/ul (4.20-5.40); RED CELL DISTRIBUTION WIDTH 16.6 % (11.5-14.5); WHITE BLOOD COUNT 8.8 10^3/ul (4.8-10.8)
[2017-06-29] MEDS ORDERED: HYDROmorphONE 1 MG/ML SYG IV ONE (01:49)
--- NOTE | 2017-06-29 01:50 | RADRPT ---
PROCEDURE: CT Abdomen and Pelvis without contrast. CLINICAL INDICATION: Abdominal pain TECHNIQUE: CT scan of the abdomen and pelvis without contrast was performed on a multidetector hig h-resolution CT scanner. The patient was scanned without intravenous contrast. Coronal and sagittal reformatted images were obtained from the axial source images. Images were reviewed on a high-resol [employer] PACS workstation. The total exam CTDI equals 9.34 mGy and the total exam DLP equals 553.38 mGy -cm. One or more the following dose reduction techniques were utilized: Automated exposure control, adjus tment of the mA and / or kV according to patient's size, or use of iterative reconstruction techniqu e. COMPARISON: 05/29/2015 FINDINGS: Linear atelectasis/fibrosis at lung bases. No pneumoperitoneum is seen. No abnormality is seen in the liver, gallbladder, spleen. Gastric bypass surgery changes again seen. No biliary dilatation i s seen. No abnormality is seen in the pancreas, adrenals. Bilateral nonobstructing renal calcifica tions are again seen the largest 3 mm in the mid to lower right kidney. No hydronephrosis or ureter al stone is seen. Small amount calcification in abdominal aorta. No abdominal aortic aneurysm is s een. No definite abnormality of the uterus or adnexal regions is seen on CT. Phleboliths in pelvis . No abnormality of the bladder is seen. Likely fibrotic change subcutaneous fat posterior lateral to the left hip. Likely calcified injection granulomas in the subcutaneous fat bilateral gluteal r egions with soft tissue stranding which could represent fibrotic changes in the subcutaneous fat joao ateral gluteal regions. Stool in much of the colon. Very small anterior upper abdominal wall hernia containing fat only. There is an unremarkable appendix. No significantly dilated small nikki l loops are seen. No enlarged lymph nodes are seen in the abdomen or pelvis. Small scattered likel y bone islands. Bilateral L5 spondylolysis with minimal grade 1 L5 on S1 spondylolisthesis. IMPRESSION: Stool in much of the colon. Very small anterior upper abdominal wall hernia containing fat only. Bi lateral nonobstructing renal calcifications again seen. Please see above. RPTAT: HJES .Alphonso Baez MD, MD Date Time Electronically viewed and signed by .Alphonso Baez MD, on 06/29/2017 01:50 .S/
[2017-06-29 01:51] LABS: ALBUMIN 3.9 g/dl (3.3-4.9); ALBUMIN/GLOBULIN RATIO 1.18; CALCIUM 8.9 mg/dl (8.4-10.2); CREATININE 0.7 mg/dl (0.44-1.00); POTASSIUM 4.3 mmol/L (3.5-5.1); TOTAL PROTEIN 7.2 g/dl (6.1-8.1)
[2017-06-29] MEDS ORDERED: CEFTRIAXONE 1 GM/50 ML (PMX) 50 ML IVPB ONE (02:00)
[2017-06-29] MEDS ORDERED: CIPR500T4 PO (02:21)
[2017-06-29] MEDS ORDERED: HYDR-906 PO (02:21)
[2017-06-29] MEDS ORDERED: PHEN-538 PO (02:21)
[2017-06-29] MEDS ORDERED: POLY17PO6 PO (02:21)
[2017-06-29] MEDS ORDERED: DOCU-144 PO (02:21)
== END 2017-06-29 02:55 | disposition home or self-care (01) ==
LOC: FTE 22:36
DX: R10.9 Unspecified abdominal pain (principal); N30.01 Acute cystitis with hematuria; J45.909 Unspecified asthma, uncomplicated; F17.210 Nicotine dependence, cigarettes, uncomplicated
CPT/HCPCS: 74176; 80053; 81001; 83690; 85025; 96374; 96375; J0696; J1170; J1885; J2270; J2405; J7030; Z7502

== ENCOUNTER 2018-10-31 00:23 | Observation (INO) | payer OTHER ==
[~2018-10-31] VITALS: Ht 172.7 cm; Wt 70.9 kg
[~2018-10-31 00:23] MED LIST changes: +DOCU-144 PO; +HYDR-4011 PO; +PHEN-538 PO; +POLY17PO6 PO; +TRA100 PO; -TRAZ100T15 PO
[2018-10-31 00:26] VITALS: Ht 172.7 cm; Wt 70.9 kg
[2018-10-31] MEDS ORDERED: ONDANSETRON 4 MG INJ IV STA (01:06)
[2018-10-31] MEDS ORDERED: SOD CHLORIDE 0.9% 1,000 ML IV STA (01:06)
[2018-10-31] MEDS ORDERED: KETOROLAC 30 MG INJ IV STA (01:06)
--- NOTE | 2018-10-31 01:25 | ERD ---
ER Documentation Chief Complaint Chief Complaint L flank pain x6 hours w/ dysuria/frequency/urgency/fever/vomiting HPI 43-year-old female presents to emergency department for complaints of left flank pain started 6 hours prior to arrival, accompanied with urinary urgency frequency and dysuria, patient also started to have fever and vomiting episodes, does not any diarrhea or constipation. Patient denies any describes the pain as throbbing pain, 6/10 scale, accompanying the other symptoms. ROS All systems reviewed and are negative except as per history of present illness. Medications Home Meds Active Scripts Polyethylene Glycol* (Miralax*) 17 Gm Powd.pack, 17 GM PO DAILY, #7 Prov:CRISTHIAN ADAMES NP 06/29/17 Docusate Sodium* (Colace*) 100 Mg Capsule, 100 MG PO TID, #30 CAP Prov:CRISTHIAN ADAMES NP 06/29/17 Ciprofloxacin Hcl* (Ciprofloxacin Hcl*) 500 Mg Tablet, 500 MG PO BID for 7 Days, TAB Prov:CRISTHIAN ADAMES NP 06/29/17 Phenazopyridine Hcl* (Pyridium*) 200 Mg Tab, 200 MG PO TID PRN for URINARY PAIN, #6 TAB Prov:CRISTHIAN ADAMES NP 06/29/17 Hydrocodone/Acetaminophen ([place] 5-325 Tablet) 1 Each Tablet, 1 TAB PO Q6H PRN for SEVERE PAIN LEVEL 7-10, #20 TAB Prov:CRISTHIAN ADAMES NP 06/29/17 Bacitracin-Polymyxin* (Double Antibiotic Oint*) 28.4 Gm Oint...g., 1 APPLIC TOP BID for 7 Days, EA Prov:ALEXANDRA RODRIGUEZEEP S. 12/14/16 Lorazepam* (Lorazepam*) 1 Mg Tablet, 1 MG PO Q6 for 14 Days, TAB Prov:MANISH RODRIGUEZ S. 12/14/16 Oxycodone Hcl* (Oxycontin*) 15 Mg Tab.sr.12h, 15 MG PO BID for 14 Days Prov:MANISH RODRIGUEZ S. 12/14/16 Hydromorphone Hcl* (Dilaudid*) 2 Mg Tablet, 1 MG PO Q6H PRN for PAIN LEVEL 7-10, #10 TAB Prov:MANISH RODRIGUEZ S. 12/14/16 Metronidazole* (Flagyl*) 500 Mg Tablet, 500 MG PO TID for 7 Days, #21 TAB Prov:MANISH RODRIGUEZ S. 12/14/16 Ciprofloxacin Hcl* (Ciprofloxacin Hcl*) 500 Mg Tablet, 500 MG PO BID for 7 Days, #14 TAB Prov:MANISH RODRIGUEZ S. 12/14/16 Reported Medications Trazodone Hcl* (Trazodone Hcl*) 100 Mg Tablet, 100 MG PO HS PRN for INSOMNIA, TAB 01/18/15 Bupropion Hcl* (Wellbutrin SR*) 200 Mg Tablet.sa, 400 MG PO DAILY, TAB.SA 11/28/14 Allergies Allergies: Coded Allergies: prochlorperazine edisylate (Verified Allergy, Severe, TONGUE SWELLS, 07/12/15) prochlorperazine maleate (Verified Allergy, Severe, TONGUE SWELLS, 07/12/15) PMhx/Soc History of Surgery: Yes Anesthesia Reaction: No Hx Neurological Disorder: Yes (MIGRAINE, PINEAL CYST) Hx Respiratory Disorders: Yes (ASTHMA) Hx Cardiac Disorders: No Hx Psychiatric Problems: Yes (ANXIETY, DEPRESION) Hx Miscellaneous Medical Probl: No (kidney stent) Hx Alcohol Use: No Hx Substance Use: No Hx Tobacco Use: Yes Smoking Status: Current every day smoker FmHx Family History: No diabetes, No coronary disease, No other Physical Exam Vitals Vital Signs Date Temp Pulse Resp B/P (MAP) Pulse Ox O2 O2 Flow FiO2 Time Delivery Rate 10/31/18 98.8 116 20 133/92 98 00:26 (106) Physical Exam GENERAL: The patient is well developed and appropriate for usual state of health, in no apparent distress. CHEST: Clear to auscultation bilaterally. There are no rales, wheezes or rhonchi. HEART: Regular rate and rhythm. No murmurs, clicks, rubs or gallops. No S3 or S4. ABDOMEN: Soft, nontender and nondistended. Good bowel sounds. No rebound or guarding. No gross peritonitis. No gross organomegaly or masses. No Cohen sign or McBurney point tenderness. BACK: No midline or flank tenderness. EXTREMITIES: Equal pulses bilaterally. There is no peripheral clubbing, cyanosis or edema. No focal swelling or erythema. Full range of motion. Grossly neurovascularly intact. NEURO: Alert and oriented. Cranial nerves 2-12 intact. Motor strength in all 4 extremities with 5/5 strength. Sensation grossly intact. Normal speech and gait. SKIN: There is no apparent rash or petechia. The skin is warm and dry. HEMATOLOGIC AND LYMPHATIC: There is no evidence of excessive bruising or lymphedema. No gross cervical, axillary, or inguinal lymphadenopathy. Result Diagram: 10/31/18 0122 10/31/18 0122 Results 24 hrs Laboratory Tests Test 10/31/18 01:00 10/31/18 01:22 Urine Color JULIO Urine Clarity CLEAR Urine pH 5.0 Urine Specific [place] 1.031 Urine Ketones NEGATIVE mg/dL Urine Nitrite POSITIVE mg/dL Urine Bilirubin NEGATIVE mg/dL Urine Urobilinogen 2+ mg/dL Urine Leukocyte Esterase NEGATIVE Stephen/ul Urine Microscopic RBC 9 /HPF Urine Microscopic WBC 25 /HPF Urine Squamous Epithelial Cells FEW /HPF Urine Calcium Oxalate Crystals MODERATE /HPF Urine Bacteria FEW /HPF Urine Mucus FEW /HPF Urine Hemoglobin NEGATIVE mg/dL Urine Glucose NEGATIVE mg/dL Urine Total Protein 1+ mg/dl White Blood Count 7.7 10^3/ul Red Blood Count 4.60 10^6/ul Hemoglobin 10.0 g/dl Hematocrit 33.1 % Mean Corpuscular Volume 72.0 fl Mean Corpuscular Hemoglobin 21.7 pg Mean Corpuscular Hemoglobin Concent 30.2 g/dl Red Cell Distribution Width 18.9 % Platelet Count 348 10^3/UL Mean Platelet Volume 9.5 fl Immature Granulocytes % 0.300 % Neutrophils % 58.8 % Lymphocytes % 29.1 % Monocytes % 8.6 % Eosinophils % 2.2 % Basophils % 1.0 % Nucleated Red Blood Cells % 0.0 /100WBC Immature Granulocytes # 0.020 10^3/ul Neutrophils # 4.5 10^3/ul Lymphocytes # 2.2 10^3/ul Monocytes # 0.7 10^3/ul Eosinophils # 0.2 10^3/ul Basophils # 0.1 10^3/ul Nucleated Red Blood Cells # 0.0 10^3/ul Sodium Level 143 mmol/L Potassium Level 4.1 mmol/L Chloride Level 105 mmol/L Carbon Dioxide Level 24 mmol/L Anion Gap 14 Blood Urea Nitrogen 19 mg/dl Creatinine 0.81 mg/dl Est Glomerular Filtrat Rate mL/min > 60 mL/min Glucose Level 91 mg/dl Calcium Level 9.4 mg/dl Total Bilirubin 0.3 mg/dl Direct Bilirubin 0.00 mg/dl Indirect Bilirubin 0.3 mg/dl Aspartate Amino Transf (AST/SGOT) 21 IU/L Alanine Aminotransferase (ALT/SGPT) 16 IU/L Alkaline Phosphatase 67 IU/L Total Protein 7.6 g/dl Albumin 4.9 g/dl Globulin 2.70 g/dl Albumin/Globulin Ratio 1.81 Lipase 82 U/L Serum HCG, Qualitative NEGATIVE Current Medications Medications Dose Sig/Benita Start Time Status Last (Trade) Ordered Route PRN Stop Time Admin Dose Reason Admin Sodium 1,000 ml @ Q1H STAT 10/31/18 DC 10/31/18 Chloride 1,000 mls/hr IV 01:06 10/31/18 01:29 02:05 Ondansetron 4 mg ONCE STAT 10/31/18 DC 10/31/18 HCl (Zofran IV 01:06 10/31/18 01:29 Inj) 01:07 Ketorolac 30 mg ONCE STAT 10/31/18 DC 10/31/18 Tromethamine IV 01:06 10/31/18 01:29 (Toradol) 01:07 Morphine 6 mg ONCE ONCE 10/31/18 DC 10/31/18 Sulfate IV 02:00 10/31/18 01:38 (morphine) 02:01 1 mg ONCE STAT 10/31/18 DC 10/31/18 Hydromorphone IV 02:06 10/31/18 02:19 HCl 02:17 (Dilaudid) Patient was given medication for pain here in emergency department, after treatment, patient verbalized feeling much better. Patient's pain is improved. Patient was given Zofran here in the emergency department. After treatment, patient was able to tolerate po fluids here in the emergency department without any vomiting. There is no signs and symptoms of dehydration. Normal saline IV bolus was given here in emergency department for rehydration, patient tolerated IV fluids. PROCEDURE: CT Abdomen and Pelvis without contrast. CLINICAL INDICATION: Abdominal pain. TECHNIQUE: CT scan of the abdomen and pelvis without contrast was performed on a multidetector high-resolution CT scanner. The patient was scanned without intravenous contrast. Coronal and sagittal reformatted images were obtained from the axial source images. Images were reviewed on a high-resolution PACS workstation. The total exam CTDI equals 6.68 mGy and the total exam DLP equals 382.29 mGy-cm. DICOM images are available. One or more of the following dose reduction techniques were utilized: 1.) Automated exposure control 2.) Adjustment of the mA +/- kV according to patient's size 3.) Use of iterative reconstruction technique. COMPARISON: CT examination of the abdomen and pelvis dated 06/29/2017. FINDINGS: CT abdomen: The lung bases are clear. The heart size is normal, without pericardial thickening or effusion. Surgical changes are seen in the region of the gastroesophageal junction with a small hiatal hernia, and these findings are similar in appearance to the prior examination dated 06/29/2017. Small bowel ileus with scattered solid stool and air throughout the small bowel. Anastomotic changes seen within a loop of small bowel in the left upper abdomen, without evident small-bowel obstruction. This likely represents the proximal jej unum. The small bowel demonstrates variable caliber. In the region of the anastomosis a small bowel is dilated to 4 cm and contains solid stool. In the left lower quadrant there is a loop of small bowel measuring about 3 cm in diameter, also containing solid stool. Differential considerations include a degree of less likely small bowel obstruction, and an IV and oral contrast enhanced CT examination of the abdomen and pelvis would be of further use. Scattered solid stool was seen throughout the small bowel on examination dated 06/29/2017, and the small bowel stool burden is increased over interval. The liver is normal in size and density without focal mass or intrahepatic biliary dilatation. The spleen is normal in size and homogeneous in density. The stomach is partially collapsed, but is grossly unremarkable. The pancreas as visualized is normal. The gallbladder and biliary tree are unremarkable and there is no evidence for biliary dilatation. The adrenal glands are symmetric and normal. Small nonobstructing calculi are seen in the left kidney, similar in appearance to examination dated 06/29/2017. The previously seen small nonobstructing calculus at the inferior pole of the right kidney is not identified on today's examination. Otherwise, the kidneys are symmetrically unremarkable. No renal calculus or obstructive uropathy or mass lesion is seen. If there is concern for pyelonephritis IV contrast enhanced CT examination would be of further use. The aorta is of normal caliber. Mild abdominal aortic vascular calcifications are present. There is no retroperitoneal lymphadenopathy. The dayana hepatis region is clear. The bowel and mesentery, as visualized, are equally unremarkable. CT pelvis: Loops of small bowel in the pelvis are of variable caliber, measuring up to 3 cm, and contain solid stool. Findings are compatible with ileus. Small bowel obstruction is considered less likely, but is included in the differential considerations. Right ovarian cyst measures up to 51 mm. Recommend ultrasound correlation. IUD is seen. The pelvic organs are otherwise normal. The pelvic sidewalls and inguinal regions are clear. The sigmoid colon and rectum are remarkable for sigmoid diverticulosis. No mass, lymphadenopathy, or free fluid is seen. No acute inflammation is seen. The appendix is unremarkable. The surrounding osseous structures are remarkable for bilateral remote pars interarticularis defects at L5, without significant change agent interval since prior examination dated 06/29/2017. No osteolytic or osteoblastic lesion is detected. IMPRESSION: 1. Solid stool air scattered throughout the abdomen and pelvis compatible with ileus. 2. There is a dilated 4 cm loop of small bowel likely representing the jejunum which contains solid stool and demonstrates prior surgical anastomoses. 3. Generally, the small bowel is of variable caliber. 4. Differential considerations include less likely small bowel obstruction, and IV and oral contrast enhanced CT examination the abdomen and pelvis would be of further use. 5. There is moderate solid stool throughout the colon, also suggesting the sequela of ileus. 6. Right ovarian cyst measures up to 51 mm and recommend ultrasound correlation. These findings, impression and recommendation for ultrasound correlation were discussed with LUCY Cadet of the [facility] emergency department at the conclusion of this examination by the undersigned interpreting radiologist on 10/31/2018 at 0307 hours. RPTAT: UU Physician Katie Date Time Electronically viewed and signed by Physician Katie on 10/31/2018 03:14 RS/ CC: CRISTHIAN ADAMES NP [id number] Procedures/MDM Medical decision making: Symptoms most likely consistent with pyelonephritis plus possible SBO, with also an ovarian cyst, and intractable pain, as per discussion with my attending physician, Dr. Nguyễn, patient will be admitted to the hospital for further evaluation and management. Departure Diagnosis: Primary Impression: Pyelonephritis Additional Impressions: SBO (small bowel obstruction) Ovarian cyst Laterality: left Qualified Codes: N83.202 - Unspecified ovarian cyst, left side Condition: Fair CRISTHIAN ADAMES NP Oct 31, 2018 01:25
[2018-10-31] MEDS ORDERED: morphine 10 MG INJ IV ONE (02:00)
[2018-10-31] MEDS ORDERED: HYDROmorphONE 0.5 MG/0.5 ML SYG IV STA ×2 (02:06→03:54)
[2018-10-31] MEDS ORDERED: CEFTRIAXONE 1 GM/50 ML (PMX) 50 ML IVPB ONE (04:00)
[2018-10-31] MEDS ORDERED: NACL 0.9% 3 ML SYG IV SCH (05:30)
[2018-10-31] MEDS ORDERED: ONDANSETRON 4 MG INJ IV PRN (05:30)
[2018-10-31] MEDS ORDERED: PHENAZOPYRIDINE 200 MG TAB PO PRN (05:30)
[2018-10-31] MEDS ORDERED: MAGNESIUM HYDROXIDE 30ML CUP PO ONE (05:30)
[2018-10-31] MEDS ORDERED: traZODone 100 MG TAB PO PRN (05:30)
[2018-10-31] MEDS ORDERED: ACETAMINOPHEN 325 MG TAB PO PRN (05:30)
[2018-10-31] MEDS: HYDROCODONE/APAP (5/325) TAB PO PRN ×2 (05:51→14:50)
[2018-10-31] MEDS ORDERED: LORAZEPAM 2 MG INJ IV ONE (06:00)
[2018-10-31] MEDS: LACTULOSE 30ML CUP PO SCH ×4 (06:28→22:31)
[2018-10-31] MEDS: SOD CHLORIDE 0.9% 1,000 ML IV SCH ×2 (06:28→16:57)
--- NOTE | 2018-10-31 06:48 | HP ---
Date/Time of Note Date/Time of Note DATE: 10/31/18 TIME: 06:40 Assessment/Plan Lines/Catheters IV Catheter Type (from Nrsg): Peripheral IV Assessment/Plan Assessment/Plan 43-year-old female with a history of depression, thyroid cancer, gastric bypass/tummy tuck surgery, left hip abscess requiring I&D. 1. UTI with possible early pyelonephritis -IV antibiotic, IV fluid -Follow-up urine culture results -Pain management 2. Ileus -CT shows stool throughout the colon as well as dilated 4 cm loop of small bowel containing 2 and demonstrates prior surgical anastomosis. Radiology recommended CT with IV and oral contrast rule out SBO if needed. Will consider that -She will be placed on bowel regimen. Patient on several narcotic medications at home, including Dilaudid 3. History of gastric bypass/tummy tuck: see #2 4. Constipation, on CT: See #2 Result Diagram: 10/31/18 0122 10/31/18 0122 Results 24hrs Laboratory Tests Test 10/31/18 01:00 10/31/18 01:22 Urine Color JULIO Urine Clarity CLEAR Urine pH 5.0 Urine Specific [place] 1.031 H Urine Ketones NEGATIVE Urine Nitrite POSITIVE A Urine Bilirubin NEGATIVE Urine Urobilinogen 2+ H Urine Leukocyte Esterase NEGATIVE Urine Microscopic RBC 9 H Urine Microscopic WBC 25 H Urine Squamous Epithelial Cells FEW Urine Calcium Oxalate Crystals MODERATE Urine Bacteria FEW A Urine Mucus FEW A Urine Hemoglobin NEGATIVE Urine Glucose NEGATIVE Urine Total Protein 1+ H White Blood Count 7.7 Red Blood Count 4.60 Hemoglobin 10.0 L Hematocrit 33.1 L Mean Corpuscular Volume 72.0 L Mean Corpuscular Hemoglobin 21.7 L Mean Corpuscular Hemoglobin Concent 30.2 L Red Cell Distribution Width 18.9 H Platelet Count 348 # Mean Platelet Volume 9.5 Immature Granulocytes % 0.300 Neutrophils % 58.8 Lymphocytes % 29.1 Monocytes % 8.6 Eosinophils % 2.2 Basophils % 1.0 Nucleated Red Blood Cells % 0.0 Immature Granulocytes # 0.020 Neutrophils # 4.5 Lymphocytes # 2.2 Monocytes # 0.7 Eosinophils # 0.2 Basophils # 0.1 Nucleated Red Blood Cells # 0.0 Sodium Level 143 Potassium Level 4.1 Chloride Level 105 Carbon Dioxide Level 24 Anion Gap 14 H Blood Urea Nitrogen 19 Creatinine 0.81 Est Glomerular Filtrat Rate mL/min > 60 Glucose Level 91 Calcium Level 9.4 Total Bilirubin 0.3 Direct Bilirubin 0.00 Indirect Bilirubin 0.3 Aspartate Amino Transf (AST/SGOT) 21 Alanine Aminotransferase (ALT/SGPT) 16 Alkaline Phosphatase 67 Total Protein 7.6 Albumin 4.9 Globulin 2.70 Albumin/Globulin Ratio 1.81 Lipase 82 Serum HCG, Qualitative NEGATIVE HPI/ROS Admit Date/Time Admit Date/Time Oct 31, 2018 at 04:52 Hx of Present Illness This is a 43-year-old female with a history of depression, gastric bypass/tummy tuck surgery, left hip abscess requiring I&D. Patient presented to ER complaining of hematuria, urinary frequency and flank pain that started several hours prior to arrival. When presented to the ER, UA is consistent with UTI. She was tachycardic, however no fever and BP WNL. CT abdomen pelvis shows the followin. Solid stool air scattered throughout the abdomen and pelvis compatible with ileus. 2. There is a dilated 4 cm loop of small bowel likely representing the jejunum which contains solid stool and demonstrates prior surgical anastomoses. 3. Generally, the small bowel is of variable caliber. 4. Differential considerations include less likely small bowel obstruction, and IV and oral contrast enhanced CT examination the abdomen and pelvis would be of further use. 5. There is moderate solid stool throughout the colon, also suggesting the sequela of ileus. 6. Right ovarian cyst measures up to 51 mm and recommend ultrasound correlation. Pelvic ultrasound was done which showed the followin. Limited examination as above. 2. Intrauterine device appears within the endometrium without focal uterine lesions demonstrated. 3. Nonvisualization of the ovaries. 4. No adnexal masses or free fluid demonstrated. . PMH/Family/Social Past Medical History Medications Current Medications Sodium Chloride 1,000 ml @ 100 mls/hr Q10H IV Last administered on 10/31/18at 06:28; Admin Dose 100 MLS/HR; Start 10/31/18 at 05:26; Stop 10/31/18 at 23:00 IV Flush (NS 3 ml) 3 ml PER PROTOCOL IV ; Start 10/31/18 at 05:30 Ondansetron HCl (Zofran Inj) 4 mg Q6H PRN IV NAUSEA AND/OR VOMITING; Start 10/31/18 at 05:30 Acetaminophen (Tylenol Tab) 650 mg Q6H PRN PO PAIN LEVEL 1-3 OR FEVER; Start 10/31/18 at 05:30 Heparin Sodium (Porcine) (Heparin (5000 Units/1ml)) 5,000 unit Q12 SC ; Start 10/31/18 at 09:00 Ceftriaxone Sodium 50 ml @ 100 mls/hr DAILY IVPB ; Start 10/31/18 at 09:00 Bupropion HCl (Wellbutrin Sr) 400 mg DAILY PO ; Start 10/31/18 at 09:00 Acetaminophen/ Hydrocodone Bitart ([place] (5/325)) 1 tab Q6H PRN PO SEVERE PAIN LEVEL 7-10 Last administered on 10/31/18at 05:51; Admin Dose 1 TAB; Start 10/31/18 at 05:30 Oxycodone HCl (Oxycontin) 15 mg BID PO ; Start 10/31/18 at 09:00 Phenazopyridine HCl (Pyridium) 200 mg TID PRN PO URINARY PAIN; Start 10/31/18 at 05:30 Polyethylene Glycol (Miralax) 17 gm DAILY PO ; Start 10/31/18 at 09:00 Trazodone HCl (Desyrel) 100 mg HS PRN PO INSOMNIA; Start 10/31/18 at 05:30 Lactulose (Enulose) 20 gm Q6H PO Last administered on 10/31/18at 06:28; Admin Dose 20 GM; Start 10/31/18 at 05:30 Coded Allergies: prochlorperazine edisylate (Unverified Allergy, Severe, TONGUE SWELLS, 10/31/18) Social History Smoking Status: Current every day smoker Exam/Review of Systems Vital Signs Vitals Vital Signs Date Temp Pulse Resp B/P (MAP) Pulse Ox O2 O2 Flow FiO2 Time Delivery Rate 10/31/18 98.2 102 16 155/92 98 06:00 (113) Intake and Output 10/30/18 10/30/18 10/31/18 1515:00 23:00 07:00 IntakeIntake Total 1000 ml BalanceBalance 1000 ml Exam Constitutional: other (Patient in distress due to pain.) Head: normocephalic, atraumatic Respiratory: clear to auscultation, normal air movement Cardiovascular: other (Tachycardic regular rhythm) Gastrointestinal: other (Pain in the suprapubic area.) Extremities: normal pulses SAMAN MARTINEZ MD 2, 2019 06:48
[2018-10-31] MEDS ORDERED: LORAZEPAM 4 MG/ML VIAL IV ONE (07:00)
--- NOTE | 2018-10-31 07:00 | NUR ---
RN NOTES Received patient from previous shift as an newly admit patient from ER. Patient is alert and oriented, vital signs taken and recorded as follows BP 128/72, pulse 92, temperature 98, respirations 16, O2 saturations 99% on room air. Patient refused pictures to be taken, skin assessment done, skin noted to be intact, no wounds noted. Patient expressed concern regarding her pain medication and stated that what she's on does not help with her pain. Patient has [place] 5-325 mg 1 tablet every 6 hours and OxyContin 15 mg tablet BID. Patient stated that Morphine is the only one that works for her and that she wants it through IV. Patient also stated that she should be on really strong anti anxiety medication and requests of Benadryl IV as well though not having allergy or any itching at the time being. Patient is also shows to have possible Ileus on CT. Dr Castaneda was made aware of all patient's concern and current situation. Dr Castaneda gave an order of Morphine 2 mg IV every 4 hours as needed. Order noted and carried out. will continue to monitor patient.
[2018-10-31 08:11] VITALS: BP 128/72; PULSE 92; RESP 16
[2018-10-31] MEDS: POLYETHYLENE GLYCOL 17 GM PACKET PO SCH ×2 (09:10→11:30)
[2018-10-31] MEDS: CEFTRIAXONE 1 GM/50 ML (PMX) 50 ML IVPB SCH (09:10)
[2018-10-31] MEDS: oxyCODONE (CR) 15 MG TAB [oxyCONTIN] PO SCH ×2 (09:11→21:06)
[2018-10-31] MEDS: HEPARIN 5,000 UNIT/1 ML VIAL SC SCH ×2 (09:42→20:14)
[2018-10-31] MEDS: SENNA TAB PO SCH ×2 (12:26→20:12)
[2018-10-31] MEDS: DOCUSATE SODIUM 100 MG CAP PO SCH ×2 (12:26→20:12)
[2018-10-31] MEDS: morphine SULFATE/PF (2 MG/2 ML) SYG IV PRN ×2 (12:27→16:55)
[2018-10-31] MEDS: BUPROPION (SR) 100 MG TAB PO SCH (12:33)
[2018-10-31 14:28] VITALS: BP 111/72; PULSE 92; RESP 16
--- NOTE | 2018-10-31 14:56 | PN ---
Date/Time of Note Date/Time of Note DATE: 10/31/18 TIME: 14:54 Assessment/Plan VTE Prophylaxis Risk score (from Ns)>0 risk: 4 SCD applied (from Ns): Yes Pharmacological prophylaxis: NA/contraindicated Pharm contraindication: low risk/ambulating Lines/Catheters IV Catheter Type (from [facility]): Peripheral IV Urinary Cath still in place: No Assessment/Plan Hospital Course 43-year-old female with a history of depression, thyroid cancer, gastric bypass/tummy tuck surgery, left hip abscess requiring I&D. 1. UTI with possible early pyelonephritis -IV antibiotic, IV fluid -Follow-up urine culture results -Pain management 2. Severe constipation/Ileus -CT shows stool throughout the colon as well as dilated 4 cm loop of small bowel containing 2 and demonstrates prior surgical anastomosis -Patient started on bowel regimen -Patient is on Dilaudid at home and may have contributed to severe constipation 3. History of gastric bypass/tummy tuck: see #2 4. Depression -Continue home meds Prophylaxis: SCDs Result Diagram: 10/31/18 0122 10/31/18 0122 Results 24hrs Laboratory Tests Test 10/31/18 01:00 10/31/18 01:22 Urine Color JULIO Urine Clarity CLEAR Urine pH 5.0 Urine Specific [place] 1.031 H Urine Ketones NEGATIVE Urine Nitrite POSITIVE A Urine Bilirubin NEGATIVE Urine Urobilinogen 2+ H Urine Leukocyte Esterase NEGATIVE Urine Microscopic RBC 9 H Urine Microscopic WBC 25 H Urine Squamous Epithelial Cells FEW Urine Calcium Oxalate Crystals MODERATE Urine Bacteria FEW A Urine Mucus FEW A Urine Hemoglobin NEGATIVE Urine Glucose NEGATIVE Urine Total Protein 1+ H White Blood Count 7.7 Red Blood Count 4.60 Hemoglobin 10.0 L Hematocrit 33.1 L Mean Corpuscular Volume 72.0 L Mean Corpuscular Hemoglobin 21.7 L Mean Corpuscular Hemoglobin Concent 30.2 L Red Cell Distribution Width 18.9 H Platelet Count 348 # Mean Platelet Volume 9.5 Immature Granulocytes % 0.300 Neutrophils % 58.8 Lymphocytes % 29.1 Monocytes % 8.6 Eosinophils % 2.2 Basophils % 1.0 Nucleated Red Blood Cells % 0.0 Immature Granulocytes # 0.020 Neutrophils # 4.5 Lymphocytes # 2.2 Monocytes # 0.7 Eosinophils # 0.2 Basophils # 0.1 Nucleated Red Blood Cells # 0.0 Sodium Level 143 Potassium Level 4.1 Chloride Level 105 Carbon Dioxide Level 24 Anion Gap 14 H Blood Urea Nitrogen 19 Creatinine 0.81 Est Glomerular Filtrat Rate mL/min > 60 Glucose Level 91 Calcium Level 9.4 Total Bilirubin 0.3 Direct Bilirubin 0.00 Indirect Bilirubin 0.3 Aspartate Amino Transf (AST/SGOT) 21 Alanine Aminotransferase (ALT/SGPT) 16 Alkaline Phosphatase 67 Total Protein 7.6 Albumin 4.9 Globulin 2.70 Albumin/Globulin Ratio 1.81 Lipase 82 Serum HCG, Qualitative NEGATIVE Subjective 24 Hr Interval Summary Gastrointestinal: pain, constipation Exam/Review of Systems Vital Signs Vitals Vital Signs Date Temp Pulse Resp B/P (MAP) Pulse Ox O2 O2 Flow FiO2 Time Delivery Rate 10/31/18 98.0 92 16 111/72 98 14:28 (85) Intake and Output 10/30/18 10/30/18 10/31/18 1414:59 22:59 06:59 IntakeIntake Total 1000 ml BalanceBalance 1000 ml Exam Constitutional: alert, oriented Respiratory: clear to auscultation Cardiovascular: regular rate and rhythm Gastrointestinal: soft; No distended Musculoskeletal: nl extremities to inspection Medications Medications Current Medications Sodium Chloride 1,000 ml @ 100 mls/hr Q10H IV Last administered on 10/31/18at 06:28; Admin Dose 100 MLS/HR; Start 10/31/18 at 05:26; Stop 10/31/18 at 23:00 IV Flush (NS 3 ml) 3 ml PER PROTOCOL IV ; Start 10/31/18 at 05:30 Ondansetron HCl (Zofran Inj) 4 mg Q6H PRN IV NAUSEA AND/OR VOMITING; Start 10/31/18 at 05:30 Acetaminophen (Tylenol Tab) 650 mg Q6H PRN PO PAIN LEVEL 1-3 OR FEVER; Start 10/31/18 at 05:30 Heparin Sodium (Porcine) (Heparin (5000 Units/1ml)) 5,000 unit Q12 SC Last administered on 10/31/18at 09:42; Admin Dose 5,000 UNIT; Start 10/31/18 at 09:00 Ceftriaxone Sodium 50 ml @ 100 mls/hr DAILY IVPB Last administered on 10/31/18at 09:10; Admin Dose 100 MLS/HR; Start 10/31/18 at 09:00 Bupropion HCl (Wellbutrin Sr) 400 mg DAILY PO Last administered on 10/31/18 12:33; Admin Dose 400 MG; Start 10/31/18 at 09:00 Acetaminophen/ Hydrocodone Bitart ([place] (5/325)) 1 tab Q6H PRN PO SEVERE PAIN LEVEL 7-10 Last administered on 10/31/18 05:51; Admin Dose 1 TAB; Start 10/31/18 at 05:30 Oxycodone HCl (Oxycontin) 15 mg BID PO Last administered on 10/31/18 09:11; Admin Dose 15 MG; Start 10/31/18 at 09:00 Phenazopyridine HCl (Pyridium) 200 mg TID PRN PO URINARY PAIN; Start 10/31/18 at 05:30 Polyethylene Glycol (Miralax) 17 gm DAILY PO Last administered on 10/31/18 09:10; Admin Dose 17 GM; Start 10/31/18 at 09:00 Trazodone HCl (Desyrel) 100 mg HS PRN PO INSOMNIA; Start 10/31/18 at 05:30 Lactulose (Enulose) 20 gm Q6H PO Last administered on 10/31/18 12:26; Admin Dose 20 GM; Start 10/31/18 at 05:30 Morphine Sulfate (morphine SULFATE (PF)) 2 mg Q4H PRN IV SEVERE PAIN LEVEL 7-10 Last administered on 10/31/18 12:27; Admin Dose 2 MG; Start 10/31/18 at 11:30 Docusate Sodium (Colace) 200 mg BID PO Last administered on 10/31/18 12:26; Admin Dose 200 MG; Start 10/31/18 at 11:30 Senna (Senokot) 2 tab BID PO Last administered on 10/31/18 12:26; Admin Dose 2 TAB; Start 10/31/18 at 11:30 Polyethylene Glycol (Miralax) 17 gm DAILY PO ; Start 10/31/18 at 11:30 RAMIRO CEJA Oct 31, 2018 14:56
[2018-10-31] MEDS: LORAZEPAM 1 MG TAB PO PRN (16:17)
--- NOTE | 2018-10-31 17:33 | NUR ---
RN NOTES Patient remained stable, seen by Dr Castaneda and discussed about the plan of care. Patient verbalized understanding. pain medication was given as requested and as ordered. Patient called at approximately 1450, stated that she really need anxiety medication and requests for Ativan. patient was crying and stated that she really is anxious. Vital signs checked and was stable as follows BP 121/68, pulse 95. Called Dr Castaneda and was made aware and gave an order to start with Ativan 1 mg tablet every 8 as needed. No BM noted. Able to walk steadily, bed alarm kept on at all times. Needs attended. Educated for medication side effects and verbalized understanding. Will endorse to night stocker for continuity of care.
--- NOTE | 2018-10-31 18:30 | NUR ---
RN NOTES Patient was administered with pain medication 90minutes go and as Ativan 1 mg as well. RN was called approximately by 1820 by patient right after the she finished her dinner. RN saw the patient still scraping her toenail with plastic fork and plastic knife. RN asked the patient what happen and patient stated that she always do that to relieve her anxiety and it makes her feel better. RN called the Charge nurse immediately for assistance. Nurse tax manager was made aware also and spoke with the patient. wound pictures was taken, wound was cleaned and dressing was applied. was also notified. All plastic equipment was removed for safety. Will continue to monitor. Addendum: 10/31/18 at 1935 by GAUTAM MOYA RN Dr Castaneda ordered Telemed Psychiatric consult regarding severe anxiety, pain seeker and scraping toenail to relieve anxiety.
--- NOTE | 2018-10-31 19:44 | NUR ---
Was called to room by staff to observe patient. Found patient scarping left great toenail with plastic fork. Stated, "I do this when I'm anxious, this is how I relieved my anxiety. I'm in pain too". Asked her if she feels any pain while she's doing it. "No". Area was bleeding. She continue digging on to her nail while talking to her. Requesting for more pain medicines. Dr. Castaneda was called and orders were given. Patient consented to telepsych after explanations were given to her why she needs telepsyche. RN took care of left great toe. Will monitor
--- NOTE | 2018-10-31 19:45 | NUR ---
Patient in room complaining of 7/10 pain at this time. Verbalized that morphine was not working for her and that 2 mg of Xanax was what she usually took at him for her anxiety. Patient also requesting Dilaudid or Percocet at this time. Verbalized to patient that the MD will be contacted and that the goal for tonight would be pain management. Also verbalized to patient not to harm herself when controlling anxiety but to practice relaxation techniques such as deep breathing. Patient verbalized understanding and stated that she only hurt herself to manage her anxiety at that moment. Dr. Snow notified at this time and received orders to discontinue morphine and to administer Percocet every 4 hours PRN and to administer 0.5 mg Xanax x1. Patient satisfied upon administration. Safety precautions and hourly rounding currently in place.
[2018-10-31] MEDS ORDERED: OXYCODONE/ACETAMINOPHEN (5/325) TAB PO PRN (20:00)
[2018-10-31] MEDS ORDERED: ALPRAZOLAM 0.25 MG TAB PO ONE ×2 (20:00→22:30)
[2018-10-31 20:11] VITALS: BP 129/76; PULSE 97; RESP 18
[2018-10-31] MEDS: OXYCODONE/ACETAMINOPHEN (5/325) TAB PO PRN (20:13)
[2018-10-31] MEDS ORDERED: HYDROmorphONE 1 MG/ML SYG IV ONE (22:30)
--- NOTE | 2018-10-31 22:30 | NUR ---
Patient complaining of pain and uncontrollable anxiety at this time. Patient requesting Xanax again and Dilaudid. Patient states, "Ativan doesn't usually work for me... I take Xanax at home." Dr. Snow notified at this time and received order to administer 1 mg of Dilaudid x1 and 0.5 mg of Xanax at this time. Patient satisfied at this time. Safety precautions and hourly rounding currently in place throughout shift.
[2018-11-01] MEDS: OXYCODONE/ACETAMINOPHEN (5/325) TAB PO PRN ×3 (00:15→11:28)
[2018-11-01] MEDS ORDERED: ALPRAZOLAM 0.5 MG TAB PO ONE (00:30)
--- NOTE | 2018-11-01 00:30 | NUR ---
Patient in room with another episode of anxiety and 9/10 pain. Patient verbalized "How many times does this has to happen; do I have to always ask for Xanax?" De-escalated patient at this time and coached patient to practice relaxation techniques (deep breathing). Notified Dr. Snow at this time and received orders to administer 1 mg of Xanax x1 at this time. Patient satisfied upon administration of Xanax and Percocet as scheduled. Will continue to assess throughout shift. Safety precautions and hourly rounding currently in place.
--- NOTE | 2018-11-01 01:00 | NUR ---
Patient in room asleep with no signs of distress. Patient with no pain noted at this time. Safety precautions and hourly rounding currently in place.
[2018-11-01 02:00] VITALS: BP 108/52; PULSE 89; RESP 18
[2018-11-01] MEDS: LACTULOSE 30ML CUP PO SCH ×2 (05:15→12:24)
--- NOTE | 2018-11-01 06:02 | NUR ---
Patient in room comfortable and with no signs of distress. Patient complaining of 9/10 pain at 0515. Administered Percocet per MD order. Patient denying pain thereafter. No episodes of anxiety at this time. Episodes of anxiety, distress, and painful outbursts throughout shift. Dr. Snow made aware. Received orders to stop IVMF this shift due to adequate oral intake. No skin breakdown noted upon assessment. Bilateral upper and lower extremity non-pitting noted upon assessment. All needs met and medications administered per MD order. Patient turned every 2 hours and OOB this shift. Safety precautions and hourly rounding currently in place until change of shift.
[2018-11-01] MEDS: LORAZEPAM 1 MG TAB PO PRN (06:58)
[2018-11-01 07:55] VITALS: BP 114/59; PULSE 82; RESP 18
[2018-11-01] MEDS: POLYETHYLENE GLYCOL 17 GM PACKET PO SCH ×2 (09:00→09:22)
[2018-11-01] MEDS: HEPARIN 5,000 UNIT/1 ML VIAL SC SCH (09:22)
[2018-11-01] MEDS: BUPROPION (SR) 100 MG TAB PO SCH (09:22)
[2018-11-01] MEDS: SENNA TAB PO SCH (09:23)
[2018-11-01] MEDS: DOCUSATE SODIUM 100 MG CAP PO SCH (09:23)
[2018-11-01] MEDS: oxyCODONE (CR) 15 MG TAB [oxyCONTIN] PO SCH (09:23)
[2018-11-01] MEDS: CEFTRIAXONE 1 GM/50 ML (PMX) 50 ML IVPB SCH (09:26)
--- NOTE | 2018-11-01 11:26 | PSY ---
Date/Time of Note Date/Time of Note DATE: 11/01/18 TIME: 11:19 Psychiatric Subjective Eval Subjective Evaluation Chief Complaint: L flank pain x6 hours w/ dysuria/frequency/urg ency/fever/vomiting History of present illness Patient is a 43-year-old female with a history of gastric bypass surgery, who is currently admitted complaining of hematuria, urinary frequency and flank pain. On a [id number] evaluation patient is increasingly anxious, she is pacing back and forth in the room, patient reports feeling depressed and hopeless, she reports excruciating pain, patient had pulled out her nail because she was extremely anxious, she denies suicidal ideation and contracted for safety. Explained risk and benefits of BuSpar, Wellbutrin, trazodone and Klonopin and patient verbalized understanding. Past psychiatric history Has long history of depression and anxiety Hospitalization: yes Medical history Problems Medical Problems: (1) Anxiety Status: Acute (2) Cough Status: Acute (3) Flank pain Status: Acute (4) Foreign body alimentary tract Status: Acute (5) Left buttock abscess Status: Acute (6) Ovarian cyst Status: Acute (7) Pyelonephritis Status: Acute (8) Renal colic Status: Acute (9) Renal colic on left side Status: Acute (10) Renal stone Status: Acute (11) SBO (small bowel obstruction) Status: Acute (12) UTI (urinary tract infection) Status: Acute Allergies: Coded Allergies: prochlorperazine edisylate (Unverified Allergy, Severe, TONGUE SWELLS, 10/31/18) Substance Abuse Substance abuse history: No Prior substance abuse treatmen: No Social History Marital status: single DPA/Conservatorship: No Psychiatric Objective Eval Review of Systems: Review of Systems: Not Applicable Physical Examination: Physical Examination: Not Applicable Energy: Decreased Interest: Decreased Mental Status Examination: Appearance: Groomed Eye Contact: Fair Behavior: Cooperative Speech: Clear AFFECT: Flat Mood: Anxious Though Process: Linear Thought Content: Normal Orientation: x4 Insight: Severe Judgement: Severe Attention Span: Distractible Laboratory Results Laboratory Tests Test 10/31/18 01:00 10/31/18 01:22 11/01/18 08:18 Urine Color JULIO Urine Clarity CLEAR Urine pH 5.0 Urine Specific [place] 1.031 Urine Ketones NEGATIVE mg/dL Urine Nitrite POSITIVE mg/dL Urine Bilirubin NEGATIVE mg/dL Urine Urobilinogen 2+ mg/dL Urine Leukocyte Esterase NEGATIVE Stephen/ul Urine Microscopic RBC 9 /HPF Urine Microscopic WBC 25 /HPF Urine Squamous Epithelial Cells FEW /HPF Urine Calcium Oxalate Crystals MODERATE /HPF Urine Bacteria FEW /HPF Urine Mucus FEW /HPF Urine Hemoglobin NEGATIVE mg/dL Urine Glucose NEGATIVE mg/dL Urine Total Protein 1+ mg/dl White Blood Count 7.7 10^3/ul 4.4 10^3/ul Red Blood Count 4.60 10^6/ul 3.64 10^6/ul Hemoglobin 10.0 g/dl 7.7 g/dl Hematocrit 33.1 % 27.1 % Mean Corpuscular Volume 72.0 fl 74.5 fl Mean Corpuscular Hemoglobin 21.7 pg 21.2 pg Mean Corpuscular 30.2 g/dl 28.4 g/dl Hemoglobin Concent Red Cell Distribution Width 18.9 % 18.6 % Platelet Count 348 10^3/UL 222 10^3/UL Mean Platelet Volume 9.5 fl 11.0 fl Immature Granulocytes % 0.300 % 0.200 % Neutrophils % 58.8 % 47.2 % Lymphocytes % 29.1 % 37.9 % Monocytes % 8.6 % 10.1 % Eosinophils % 2.2 % 3.9 % Basophils % 1.0 % 0.7 % Nucleated Red Blood Cells % 0.0 /100WBC 0.0 /100WBC Immature Granulocytes # 0.020 10^3/ul 0.010 10^3/ul Neutrophils # 4.5 10^3/ul 2.1 10^3/ul Lymphocytes # 2.2 10^3/ul 1.7 10^3/ul Monocytes # 0.7 10^3/ul 0.4 10^3/ul Eosinophils # 0.2 10^3/ul 0.2 10^3/ul Basophils # 0.1 10^3/ul 0.0 10^3/ul Nucleated Red Blood Cells # 0.0 10^3/ul 0.0 10^3/ul Sodium Level 143 mmol/L 137 mmol/L Potassium Level 4.1 mmol/L 4.5 mmol/L Chloride Level 105 mmol/L 110 mmol/L Carbon Dioxide Level 24 mmol/L 22 mmol/L Anion Gap 14 5 Blood Urea Nitrogen 19 mg/dl 13 mg/dl Creatinine 0.81 mg/dl 0.48 mg/dl Est Glomerular Filtrat > 60 mL/min > 60 mL/min Rate mL/min Glucose Level 91 mg/dl 99 mg/dl Calcium Level 9.4 mg/dl 8.3 mg/dl Total Bilirubin 0.3 mg/dl 0.0 mg/dl Direct Bilirubin 0.00 mg/dl 0.00 mg/dl Indirect Bilirubin 0.3 mg/dl 0.0 mg/dl Aspartate Amino 21 IU/L 20 IU/L Transf (AST/SGOT) Alanine 16 IU/L 24 IU/L Aminotransferase (ALT/SGPT) Alkaline Phosphatase 67 IU/L 49 IU/L Total Protein 7.6 g/dl 5.9 g/dl Albumin 4.9 g/dl 3.3 g/dl Globulin 2.70 g/dl 2.60 g/dl Albumin/Globulin Ratio 1.81 1.26 Lipase 82 U/L Serum HCG, Qualitative NEGATIVE Phosphorus Level 3.9 mg/dl Magnesium Level 2.1 mg/dl Iron Level 17 ug/dl Total Iron Binding Capacity 339 ug/dl Percent Iron Saturation 5 % SAT Assessment and Plan Assessment/Diagnosis Diagnosis Major depressive disorder severe recurrent without psychosis Recommendation/Plan Medication Management Bupropion 400 mg daily, BuSpar 5 mg twice a day, trazodone 50 mg at bedtime, Klonopin 1 mg twice a day. Multiple antipsychotics: No Psychotherapy Reality orientation therapy and supportive therapy Discharge Disposition: Other Legal Status: Voluntary (None meet criteria for 5150 hold) SANCHO HANCOCK NP Nov 01, 2018 11:26
[2018-11-01] MEDS ORDERED: clonAZEPAM 0.5 MG TAB PO ONE (11:30)
--- NOTE | 2018-11-01 11:33 | NUR ---
Patient request Patient requesting no information be provided to family. Discussed that calls will be forwarded to her for any questions made by family. Primary RN and field research associate aware.
[2018-11-01] MEDS ORDERED: LACT20SO2 PO (12:21)
[2018-11-01] MEDS ORDERED: POLY17PO6 PO (12:21)
[2018-11-01] MEDS ORDERED: BUSP5TAB2 PO (12:21)
[2018-11-01] MEDS ORDERED: TRA100 PO (12:21)
[2018-11-01] MEDS ORDERED: SENN-120 PO (12:21)
[2018-11-01] MEDS ORDERED: DOCU-216 PO (12:21)
[2018-11-01] MEDS ORDERED: CLON-412 PO (12:21)
--- NOTE | 2018-11-01 12:22 | PDOCDIS ---
Discharge Instructions CONDITION [id number] Patient Condition: [id number] Good HOME CARE INSTRUCTIONS: [id number] Diet Instructions: [id number] Regular ACTIVITY: [id number] Activity Restrictions: [id number] No Restrictions FOLLOW UP/APPOINTMENTS Follow-up Plan FOLLOW UP WITH YOUR PCP IN 1-2 WEEKS RAMIRO CEJA Nov 01, 2018 12:22
[2018-11-01] MEDS ORDERED: BUSPIRONE 5 MG TAB PO SCH (12:30)
[2018-11-01] MEDS ORDERED: CIPR-193 PO (12:37)
--- NOTE | 2018-11-01 13:32 | NUR ---
discharge notes patient discharged home in stable condition. discharge instructions and medication prescription given to patient. IV lines removed. patient discharge via wheel chair escorted by volunteer. patient's belongings retuned to patient.
--- NOTE | 2018-11-01 17:49 | DS ---
Date/Time of Note Date/Time of Note DATE: 11/01/18 TIME: 17:43 Discharge Summary Admission/Discharge Info Admit Date/Time Oct 31, 2018 at 04:52 Discharge Date/Time Nov 01, 2018 at 13:37 Discharge Diagnosis 1. UTI -Status post IV antibiotics, DC with Cipro 2. Severe constipation/Ileus secondary to severe depression/anxiety and/or opiate overuse-improved -Patient having bowel movements -CT shows stool throughout the colon as well as dilated 4 cm loop of small bowel containing 2 and demonstrates prior surgical anastomosis -DC with Colace, senna, MiraLAX, lactulose -Patient has multiple opioids listed on home meds but denies being on opioids at home, patient was exhibiting pain seeking behavior and was told that she should stop taking opioids as this is exacerbating her constipation 3. History of gastric bypass/tummy tuck: see #2 4. Depression/anxiety -Psychiatry consultation appreciated, DC with Klonopin and BuSpar in addition to home Wellbutrin Patient Condition: Good Hospital Course Patient is a 43-year-old female with a history of depression/anxiety, thyroid cancer, gastric bypass/tummy tuck surgery, left hip abscess requiring I&D. Patient presents with abdominal pain secondary to severe constipation and ileus as well as UTI. Patient was started on a bowel regimen and did have bowel movements. Patient was requesting opiates and wanted to be prescribed opiates upon DC, patient was told that opiates will exacerbate her constipation and that she should stop taking her home opiates. Patient reported that she has no home opiates even though multiple opiates were listed on her home meds. Patient was severely anxious and psychiatry consultation was obtained, patient was started on BuSpar and Klonopin in addition to her home meds. Patient was having bowel movements and was stable for DC, of note patient was on IV antibiotics for her UTI was discharged with Cipro p.o. On the day of discharge patient's vitals, labs and physical exam are stable patient has no further acute complaints questions are answered. Home Meds Active Scripts Ciprofloxacin Hcl* (Ciprofloxacin Hcl*) 250 Mg Tablet, 250 MG PO BID for 3 Days, #6 TAB Prov:BRENNADOMINICK LEONARDA 11/01/18 Clonazepam* (Klonopin*) 1 Mg Tablet, 1 MG PO BID, #60 TAB Prov:BRENNADOMINICK LEONARDA 11/01/18 Sennosides* (Senna Lax*) 8.6 Mg Tablet, 2 TAB PO BID, #60 TAB Prov:RAMIRO CEJA 11/01/18 Docusate Sodium (Dok) 100 Mg Capsule, 200 MG PO BID, #60 CAP 1 Refill Prov:RAMIRO CEJA 11/01/18 Lactulose* (Lactulose*) 20 Gm/30 Ml Solution, 20 GM PO Q8 PRN for CONSTIPATION, #30 BOTTLE Prov:RAMIRO CEJA 11/01/18 Buspirone Hcl* (Buspirone Hcl*) 5 Mg Tab, 5 MG PO BID, #60 TAB Prov:RAMIRO CEJA 11/01/18 Polyethylene Glycol* (Miralax*) 17 Gm Powd.pack, 17 GM PO DAILY, #60 PACKET Prov:RAMIRO CEJA 11/01/18 Trazodone Hcl* (Trazodone Hcl*) 100 Mg Tablet, 100 MG PO HS PRN for INSOMNIA, #60 TAB Prov:RAMIRO CEJA 11/01/18 Phenazopyridine Hcl* (Pyridium*) 200 Mg Tab, 200 MG PO TID PRN for URINARY PAIN, #6 TAB Prov:CRISTHIAN ADAMES CANOE INSPECTOR FINAL 06/29/17 Reported Medications Bupropion Hcl* (Wellbutrin SR*) 200 Mg Tablet.sa, 400 MG PO DAILY, TAB.SA 11/28/14 Discontinued Scripts Hydrocodone/Acetaminophen ([place] 5-325 Tablet) 1 Each Tablet, 1 TAB PO Q6H PRN for SEVERE PAIN LEVEL 7-10, #20 TAB Prov:CRISTHIAN ADAMES CANOE INSPECTOR FINAL 06/29/17 Lorazepam* (Lorazepam*) 1 Mg Tablet, 1 MG PO Q6 for 14 Days, TAB Prov:MANISH RODRIGUEZ S. 12/14/16 Oxycodone Hcl* (Oxycontin*) 15 Mg Tab.sr.12h, 15 MG PO BID for 14 Days Prov:MANISH RODRIGUEZ S. 12/14/16 Hydromorphone Hcl* (Dilaudid*) 2 Mg Tablet, 1 MG PO Q6H PRN for PAIN LEVEL 7-10, #10 TAB Prov:MANISH RODRIGUEZ S. 12/14/16 Metronidazole* (Flagyl*) 500 Mg Tablet, 500 MG PO TID for 7 Days, #21 TAB Prov:MANISH RODRIGUEZ S. 12/14/16 Docusate Sodium* (Colace*) 100 Mg Capsule, 100 MG PO TID, #30 CAP Prov:CRISTHIAN ADAMES CANOE INSPECTOR FINAL 06/29/17 Ciprofloxacin Hcl* (Ciprofloxacin Hcl*) 500 Mg Tablet, 500 MG PO BID for 7 Days, TAB Prov:CRISTHIAN ADAMES CANOE INSPECTOR FINAL 06/29/17 Bacitracin-Polymyxin* (Double Antibiotic Oint*) 28.4 Gm Oint...g., 1 APPLIC TOP BID for 7 Days, EA Prov:MNAISH RODRIGUEZ S. 12/14/16 Ciprofloxacin Hcl* (Ciprofloxacin Hcl*) 500 Mg Tablet, 500 MG PO BID for 7 Days, #14 TAB Prov:MANISH RODRIGUEZ S. 12/14/16 Follow-up Plan FOLLOW UP WITH YOUR PCP IN 1-2 WEEKS Primary Care Provider Not On Staff Doctor Time spent on discharge: > 30 minutes RAMIRO CEJA Nov 01, 2018 17:49
== END 2018-11-01 13:37 | disposition home or self-care (01) ==
LOC: FTE 00:23 → PP2 04:52
PROVIDERS: ADMIT Internal Medicine; ATTEND Internal Medicine
DX: N39.0 Urinary tract infection, site not specified (principal); K59.00 Constipation, unspecified; F41.8 Other specified anxiety disorders
CPT/HCPCS: 36415; 74176; 76830; 76856; 80053; 81001; 83540; 83690; 83735; 84100; 84703; 85025; 87086; 96361; 96374; 96375; 96376; J0696; J1170; J1644; J1885; J2060; J2270; J2274; J2405; J7030; Z7500; Z7502; Z7610; G0378

== ENCOUNTER 2019-06-10 23:17 | Emergency (ER) | payer OTHER ==
[~2019-06-10] VITALS: Ht 172.7 cm; Wt 70.7 kg
[~2019-06-10 23:17] MED LIST changes: -BACI28.421 TOP; +BUSP5TAB2 PO; +CIPR-193 PO; -CIPR500T4 PO; +CLON-412 PO; -DOCU-144 PO; +DOCU-216 PO; -HYDR-4011 PO; -HYDR2TAB36 PO; +LACT20SO2 PO; -LORA1TAB PO; -METR500T PO; -OXYC-536 PO; +SENN-120 PO; +SULF1TAB31 PO; +TRAM50TA2 PO
[2019-06-10 23:19] VITALS: BP 139/80; PULSE 103; RESP 19; Ht 172.7 cm; Wt 70.7 kg
[2019-06-10] MEDS ORDERED: SOD CHLORIDE 0.9% 1,000 ML IV STA (23:49)
[2019-06-10] MEDS ORDERED: ONDANSETRON 4 MG INJ IV STA (23:49)
[2019-06-10] MEDS ORDERED: morphine 4 MG/ML VIAL IV STA (23:49)
[2019-06-11] MEDS ORDERED: HYDROmorphONE 0.5 MG/0.5 ML SYG IV STA (02:03)
== END 2019-06-11 02:53 | disposition home or self-care (01) ==
LOC: E/R 23:17
DX: N39.0 Urinary tract infection, site not specified (principal); R10.2 Pelvic and perineal pain; F17.210 Nicotine dependence, cigarettes, uncomplicated
CPT/HCPCS: 74176; 80053; 81001; 81003; 81025; 83690; 85025; 87086; J1170; J2270; J2405; J7030; 36415; 96374; 96375